=== PATIENT | female | born 1990 | race Caucasian/White ===

== ENCOUNTER 2021-08-18 01:47 | Emergency (ER) | payer SELFPAY ==
--- NOTE | 2021-08-18 01:51 | XRR_ITS ---
PROCEDURE INFORMATION: Exam: XR Right Ankle Exam date and time: 08/18/2021 2:16 AM Age: 31 years old Clinical indication: Injury or trauma; Fall; Sprain or strain; Ankle; Right TECHNIQUE: Imaging protocol: XR Right ankle. Views: 3 or more views. COMPARISON: No relevant prior studies available. FINDINGS: Bones/joints: The ankle mortise is normally aligned. No acute fracture is seen. Small calcaneal plantar enthesophyte. Soft tissues: No tibio-talar joint effusion is present. Kager's fat pad is normal. XR/XR ankle RT min 3V* [id number] IMPRESSION: No evidence of fracture.
--- NOTE | 2021-08-18 01:51 | XRR_ITS ---
PROCEDURE INFORMATION: Exam: XR Right Foot Exam date and time: 08/18/2021 2:16 AM Age: 31 years old Clinical indication: Pain; Foot; Right; Additional info: Fall TECHNIQUE: Imaging protocol: XR Right foot. Views: 3 or more views. COMPARISON: No relevant prior studies available. FINDINGS: Bones/joints: No acute fracture is seen. The Lisfranc joint is in normal alignment. The visualized joint spaces are normal. Bifid medial hallux sesamoid. Small calcaneal plantar enthesophyte. Soft tissues: No joint effusion is seen. XR/XR foot RT min 3V* [id number] IMPRESSION: No evidence of acute fracture or dislocation.
[2021-08-18 01:54] VITALS: BP 143/90; PULSE 90; RESP 16; TEMP 36.6; O2SAT 97; BMI 43.2
--- NOTE | 2021-08-18 02:15 | W.ED.FALL ---
HPI - Fall General: Chief Complaint: Fall Stated Complaint: fell, R foot injury Time Seen by Provider: 08/18/21 01:54 Source: patient Mode of arrival: ambulatory Limitations: no limitations History of Present Illness: 31-year-old female states that she was walking down stairs at 6 PM states she had fell and twisted her right foot. She has pain over the right lateral portion of her foot with a contusion. States that pain is a 4 out of 10 she is able ambulate but states it is painful. Denies any other injuries denies any other pain. States her pain is improved with rest. Associated symptoms-after fall: Denies abdominal pain, chest pain or headache(s) Review of Systems Const: Denies: fever(s), chills, body aches or change in appetite Eyes: Denies: blurry vision or eye discomfort ENMT: Denies: throat pain or dental pain Card: Denies: chest pain Resp: Denies: dyspnea GI: Denies: abdominal pain, nausea, vomiting or diarrhea : Denies: dysuria Musc: Reports: extremity pain Skin/Breast: Denies: rash Neuro: Denies: headache(s) Psych: Denies: depression Jake/Lymph: Denies: easy bruising All/Imm: Denies: urticaria PFSH ED PFSH: Medical History (Updated 08/18/21 @ 02:18 by Jaime Wei MD) No pertinent past medical history Social History (Updated 08/18/21 @ 02:17 by Jaime Wei MD) Substance/Drug Use: never Physical Exam Const: COMMON NORMALS: no acute distress, patient oriented x3 and healthy appearing HENMT: COMMON NORMALS: normocephalic and atraumatic HEAD & SCALP: normocephalic and atraumatic Eye: COMMON NORMALS: Equal, round and reactive pupils present and EOMs intact bilaterally PUPIL: Yes Equal, round and reactive pupils present Neck/C-Spine: COMMON NORMALS: full ROM and supple Chest: COMMONS NORMALS: normal inspection of the chest and normal palpation of entire chest wall Resp: COMMON NORMALS: normal respiratory effort, No retractions, No use of accessory muscles and clear to auscultation bilaterally AUSCULTATION: clear to auscultation bilaterally Cardio: COMMON NORMALS: regular rate, regular rhythm and No murmurs present (Cardio) RATE: regular rate RHYTHM: regular rhythm GI: COMMON NORMALS: Normal to inspection, nondistended, normoactive bowel sounds present, Soft to palpation, non-tender and no masses PALPATION: Yes Soft to palpation Extremity: COMMON NORMALS: full ROM NARRATIVE EXTREMITY EXAM: Contusion over right lateral foot with slight tenderness no obvious deformity Neuro: COMMON NORMALS: patient oriented x3, moves all extremities and no focal motor deficits Psych: COMMON NORMALS: mental status grossly normal, Normal thought process present and cooperative THOUGHT PROCESS: Normal thought process present Skin: COMMON NORMALS: no rashes or lesions noted and no wounds GENERAL SKIN EXAM: no rashes or lesions noted Course Vital Signs: Vital signs: Vital Signs Temperature 97.9 F 08/18/21 01:54 Pulse Rate 90 08/18/21 01:54 Respiratory Rate 16 08/18/21 01:54 Blood Pressure 143/90 08/18/21 01:54 Pulse Oximetry 97 08/18/21 01:54 MDM - Fall Medical Decision Making Patient presents here with a foot sprain x-ray here is negative patient placed in Everette wrap prescribed Naprosyn is stable for discharge. Discharge Plan Discharge Patient Disposition: Home Clinical Impression: Sprain of foot, right Qualifiers: Encounter type: initial encounter Qualified Code(s): S93.601A - Unspecified sprain of right foot, initial encounter Prescriptions: New Naprosyn 500 mg tablet 500 mg PO BID PRN (Reason: pain) Qty: 20 0RF Discharge Orders: Discharge ED (Routine); Ordered 08/18/21 Ordered By: Jaime Wei Discharge Diet: Advance as tolerated Discharge Activity: Resume usual activity Patient Instructions: Foot Sprain (ED) Coding Level of Care Code ED Material Mixer for Reema Fwurvashi Exam Comprehensive
== END 2021-08-18 02:25 | disposition home or self-care (01) ==
PROVIDERS: Emergency Provider Emergency Medicine
DX: S93.601A Unspecified sprain of right foot, initial encounter (principal); W10.9XXA Fall (on) (from) unspecified stairs and steps, initial encounter
CPT/HCPCS: 73610; 73630; 99283

== ENCOUNTER → 2021-12-19 09:22 | Outpatient (BNVA) | payer MEDICAID, SELFPAY | PROVIDERS: Visit Provider Nurse Practitioner Women's Health | DX: N92.6 Irregular menstruation, unspecified (principal) | CPT/HCPCS: 81025 ==

== ENCOUNTER → 2021-12-30 10:30 | Outpatient (BNVA) | payer MEDICAID, SELFPAY | PROVIDERS: Visit Provider Obstetrics & Gynecology | DX: Z34.90 Encounter for supervision of normal pregnancy, unspecified, unspecified trimester (principal) | CPT/HCPCS: 80307; 81000; 82950; 83036; 84443; 85027; 86592; 86762; 86803; 86850; 86900; 87086; 87340; 87806 ==

== ENCOUNTER → 2022-01-02 11:03 | Outpatient (BNVA) | payer MEDICAID, SELFPAY | PROVIDERS: Visit Provider Obstetrics & Gynecology | DX: Z34.91 Encounter for supervision of normal pregnancy, unspecified, first trimester (principal); Z3A.09 9 weeks gestation of pregnancy | CPT/HCPCS: 76817 ==

== ENCOUNTER → 2022-01-07 07:40 | Outpatient (BNVA) | payer OTHER, SELFPAY | PROVIDERS: Visit Provider Obstetrics & Gynecology | DX: Z34.90 Encounter for supervision of normal pregnancy, unspecified, unspecified trimester (principal) | CPT/HCPCS: 82951; 82952 ==

== ENCOUNTER → 2022-01-13 11:11 | Outpatient (BNVA) | payer OTHER, MEDICAID, SELFPAY | PROVIDERS: Visit Provider Obstetrics & Gynecology | DX: O09.91 Supervision of high risk pregnancy, unspecified, first trimester (principal); Z3A.00 Weeks of gestation of pregnancy not specified; Z12.4 Encounter for screening for malignant neoplasm of cervix | CPT/HCPCS: 81000; 87491; 87591; 87624 ==

== ENCOUNTER → 2022-01-20 08:09 | Outpatient (BNVA) | payer OTHER, SELFPAY | PROVIDERS: Visit Provider Obstetrics & Gynecology | DX: O09.92 Supervision of high risk pregnancy, unspecified, second trimester (principal); Z3A.00 Weeks of gestation of pregnancy not specified | CPT/HCPCS: 81000 ==

== ENCOUNTER → 2022-01-28 08:06 | Outpatient (BNVA) | payer OTHER, SELFPAY | PROVIDERS: Visit Provider Obstetrics & Gynecology | DX: O09.92 Supervision of high risk pregnancy, unspecified, second trimester (principal); Z3A.00 Weeks of gestation of pregnancy not specified | CPT/HCPCS: 81000 ==

== ENCOUNTER → 2022-02-03 09:50 | Outpatient (BNVA) | payer OTHER, SELFPAY | PROVIDERS: Visit Provider Obstetrics & Gynecology | DX: O09.92 Supervision of high risk pregnancy, unspecified, second trimester (principal); O24.912 Unspecified diabetes mellitus in pregnancy, second trimester; Z3A.00 Weeks of gestation of pregnancy not specified | CPT/HCPCS: 81000; 87086 ==

== ENCOUNTER → 2022-02-06 13:16 | Outpatient (BNVA) | payer OTHER, MEDICAID, SELFPAY | PROVIDERS: Visit Provider Obstetrics & Gynecology | DX: O24.419 Gestational diabetes mellitus in pregnancy, unspecified control (principal); Z3A.14 14 weeks gestation of pregnancy | CPT/HCPCS: 76815 ==

== ENCOUNTER → 2022-02-11 09:20 | Outpatient (BNVA) | payer OTHER, MEDICAID, SELFPAY | PROVIDERS: Visit Provider Obstetrics & Gynecology | DX: O09.92 Supervision of high risk pregnancy, unspecified, second trimester (principal); Z3A.00 Weeks of gestation of pregnancy not specified | CPT/HCPCS: 81000; 82105 ==

== ENCOUNTER → 2022-02-19 10:00 | Outpatient (BNVA) | payer OTHER, SELFPAY | PROVIDERS: Visit Provider Nurse Practitioner Women's Health | DX: O09.92 Supervision of high risk pregnancy, unspecified, second trimester (principal); Z3A.00 Weeks of gestation of pregnancy not specified | CPT/HCPCS: 81000 ==

== ENCOUNTER → 2022-02-25 10:44 | Outpatient (BNVA) | payer OTHER, SELFPAY | PROVIDERS: Visit Provider Obstetrics & Gynecology | DX: O09.92 Supervision of high risk pregnancy, unspecified, second trimester (principal); Z3A.00 Weeks of gestation of pregnancy not specified | CPT/HCPCS: 81000 ==

== ENCOUNTER → 2022-03-18 09:00 | Outpatient (BNVA) | payer OTHER, SELFPAY | PROVIDERS: Visit Provider Obstetrics & Gynecology | DX: O09.92 Supervision of high risk pregnancy, unspecified, second trimester (principal); Z3A.00 Weeks of gestation of pregnancy not specified | CPT/HCPCS: 81000 ==

== ENCOUNTER → 2022-03-25 10:58 | Outpatient (BNVA) | payer OTHER, SELFPAY | PROVIDERS: Visit Provider Obstetrics & Gynecology | DX: O09.92 Supervision of high risk pregnancy, unspecified, second trimester (principal); Z3A.00 Weeks of gestation of pregnancy not specified | CPT/HCPCS: 81000 ==

== ENCOUNTER → 2022-04-11 07:38 | Outpatient (BNVA) | payer OTHER, MEDICAID, SELFPAY | PROVIDERS: Visit Provider Obstetrics & Gynecology | DX: O09.92 Supervision of high risk pregnancy, unspecified, second trimester (principal); Z3A.00 Weeks of gestation of pregnancy not specified | CPT/HCPCS: 81000; 85025 ==

== ENCOUNTER → 2022-05-08 13:12 | Outpatient (BNVA) | payer MEDICAID, SELFPAY | PROVIDERS: Visit Provider Obstetrics & Gynecology | DX: O09.92 Supervision of high risk pregnancy, unspecified, second trimester (principal); O99.212 Obesity complicating pregnancy, second trimester; E66.9 Obesity, unspecified; Z3A.00 Weeks of gestation of pregnancy not specified | CPT/HCPCS: 84315; 85027; 86850 ==

== ENCOUNTER → 2022-06-13 15:33 | Outpatient (BNVA) | payer MEDICAID, SELFPAY | PROVIDERS: Visit Provider Obstetrics & Gynecology | DX: O09.90 Supervision of high risk pregnancy, unspecified, unspecified trimester (principal); O99.210 Obesity complicating pregnancy, unspecified trimester; E66.9 Obesity, unspecified; Z3A.00 Weeks of gestation of pregnancy not specified | CPT/HCPCS: 81000; 85025 ==

== ENCOUNTER → 2022-06-17 08:40 | Outpatient (BNVA) | payer OTHER, MEDICAID, SELFPAY | PROVIDERS: Visit Provider Obstetrics & Gynecology | DX: O09.93 Supervision of high risk pregnancy, unspecified, third trimester (principal); Z3A.00 Weeks of gestation of pregnancy not specified | CPT/HCPCS: 76819 ==

== ENCOUNTER 2022-06-20 10:23 | Outpatient (CLI) | payer OTHER, MEDICAID, SELFPAY ==
[2022-06-20 10:34] VITALS: BP 119/70; PULSE 77
[2022-06-20 10:39] VITALS: BMI 41.5
--- NOTE | 2022-06-20 11:29 | US_ITS ---
WS: [id number] BIOPHYSICAL PROFILE AMNIOTIC FLUID HISTORY: GDM COMPARISON: 06/17/2022 position: Vertex. Cardiac activity: 131 bpm. Cervix: Poorly visualized. Placenta: Not imaged. Parameters are as follows: Breathin Movement: 2 Tone: 2 Fluid volume: 2 Amniotic fluid index was not performed but there are several vertical pocket of amniotic fluid which are normal. The largest vertical pocket is 3.9 cm. US/US OB BPP [place] NST 23730 IMPRESSION: 1. Biophysical profile score: 8/8. 2. Normal amniotic fluid.
== END 2022-06-20 12:05 | disposition home or self-care (01) ==
LOC: OPOB 10:24 → OBGYN 10:25
PROVIDERS: Visit Provider Obstetrics & Gynecology
DX: O24.419 Gestational diabetes mellitus in pregnancy, unspecified control (principal); Z3A.00 Weeks of gestation of pregnancy not specified
CPT/HCPCS: 59025; 76819; 84315

== ENCOUNTER → 2022-06-24 08:42 | Outpatient (BNVA) | payer MEDICAID, SELFPAY | PROVIDERS: Visit Provider Obstetrics & Gynecology | DX: O24.919 Unspecified diabetes mellitus in pregnancy, unspecified trimester (principal); Z3A.00 Weeks of gestation of pregnancy not specified | CPT/HCPCS: 76819 ==

== ENCOUNTER 2022-06-27 11:50 | Outpatient (CLI) | payer MEDICAID, SELFPAY ==
[2022-06-27 12:05] VITALS: BP 126/76; PULSE 71
[2022-06-27 12:19] VITALS: BMI 42.2
== END 2022-06-27 12:49 | disposition home or self-care (01) ==
LOC: OPOB 11:57 → OBGYN 11:58
PROVIDERS: Visit Provider Obstetrics & Gynecology
DX: O24.419 Gestational diabetes mellitus in pregnancy, unspecified control (principal)
CPT/HCPCS: 59025; 81000

== ENCOUNTER → 2022-07-01 10:33 | Outpatient (BNVA) | payer MEDICAID, SELFPAY | PROVIDERS: Visit Provider Obstetrics & Gynecology | DX: O24.419 Gestational diabetes mellitus in pregnancy, unspecified control (principal); Z3A.00 Weeks of gestation of pregnancy not specified | CPT/HCPCS: 76819 ==

== ENCOUNTER 2022-07-01 11:13 | Outpatient (CLI) | payer OTHER, MEDICAID, SELFPAY ==
[2022-07-01 11:25] VITALS: BP 126/68; PULSE 87
[2022-07-01 12:02] VITALS: BMI 42.4
== END 2022-07-01 12:32 | disposition home or self-care (01) ==
LOC: OPOB 11:17 → OBGYN 11:21
PROVIDERS: Visit Provider Obstetrics & Gynecology
DX: O24.919 Unspecified diabetes mellitus in pregnancy, unspecified trimester (principal)
CPT/HCPCS: 59025

== ENCOUNTER 2022-07-04 10:48 | Outpatient (CLI) | payer OTHER, MEDICAID, SELFPAY ==
[2022-07-04 10:58] VITALS: BP 131/74; PULSE 76
[2022-07-04 11:02] VITALS: BMI 42.7
[2022-07-04 12:14] VITALS: BP 131/74; PULSE 76
== END 2022-07-04 12:15 | disposition home or self-care (01) ==
LOC: OPOB 10:54 → OBGYN 10:55
PROVIDERS: Visit Provider Obstetrics & Gynecology
DX: O24.419 Gestational diabetes mellitus in pregnancy, unspecified control (principal); Z3A.00 Weeks of gestation of pregnancy not specified
CPT/HCPCS: 59025; 81000; 87081; 99211

== ENCOUNTER 2022-07-11 09:58 | Outpatient (CLI) | payer MEDICAID, SELFPAY ==
[2022-07-11 10:00] VITALS: BMI 42.7
[2022-07-11 10:04] VITALS: BP 126/60; PULSE 57
[2022-07-11 10:19] VITALS: BP 116/73; PULSE 68
--- NOTE | 2022-07-11 10:55 | US_ITS ---
WS: [id number] OB ultrasound for biophysical profile, 07/11/2022 Clinical Data: Gestational DM Comparison: None. Findings: There is a single intrauterine in the vertex presentation. The heart rate is 120 beat s per minute. The cervix is closed. The placenta is fundal. The biophysical profile is 8 of 8 with normal scores for breathing, movement, posture and tone and amniotic fluid volume. US/US OB BPP wo NST 30097 Impression: 1. Single intrauterine in vertex presentation. 2. Biophysical profile 8 of 8. 3. heart rate 120 beats per minute.
[2022-07-11 11:55] VITALS: BP 116/73; PULSE 68
== END 2022-07-11 11:55 | disposition home or self-care (01) ==
LOC: OPOB 10:02 → OBGYN 10:03
PROVIDERS: Absent Provider Obstetrics & Gynecology; Visit Provider Obstetrics & Gynecology
DX: O24.419 Gestational diabetes mellitus in pregnancy, unspecified control (principal); Z3A.00 Weeks of gestation of pregnancy not specified
CPT/HCPCS: 59025; 76819; 81000; 99211

== ENCOUNTER → 2022-07-14 10:28 | Outpatient (BNVA) | payer OTHER, MEDICAID, SELFPAY | PROVIDERS: Visit Provider Obstetrics & Gynecology | DX: O09.93 Supervision of high risk pregnancy, unspecified, third trimester (principal); Z3A.00 Weeks of gestation of pregnancy not specified | CPT/HCPCS: 76819; 81000 ==

== ENCOUNTER 2022-07-16 10:31 | Outpatient (CLI) | payer OTHER, MEDICAID, SELFPAY ==
[2022-07-16 12:18] LABS: Total Volume, Urine 2150 mL; Urine Total Protein 12.6 mg/dL (0-150); Urine Total Protein 24 Hour 270.9 mg/24hr (0-150)
== END 2022-07-16 10:32 | disposition home or self-care (01) ==
LOC: LAB 10:34
PROVIDERS: PCP Obstetrics & Gynecology; Visit Provider Obstetrics & Gynecology
DX: Z03.89 Encounter for observation for other suspected diseases and conditions ruled out (principal)
CPT/HCPCS: 84156

== ENCOUNTER 2022-07-19 01:40 | Inpatient (IN) | payer OTHER, MEDICAID, SELFPAY ==
[2022-07-18] VITALS (9 sets, daily range): BP systolic 123–155; BP diastolic 58–68; PULSE 66–79; TEMP 36.1; BMI 43.0
[2022-07-19] VITALS (75 sets, daily range): BP systolic 110–177; BP diastolic 55–83; PULSE 56–97; RESP 16–18; TEMP 35.9–36.6; O2SAT 98–100
[2022-07-19 02:57] LABS: Basophils % 0.1 %; Eosinophils # 0.1 10^3/uL (0.0-0.8); Hematocrit 34.8 % (37.0-47.0); Hemoglobin 11.2 g/dL (11.5-15.3); Lymphocytes # 2.3 10^3/uL (0.8-4.8); Lymphocytes % 21.1 %; Mean Corpuscular HGB Conc 32.2 g/dL (30.0-36.0); Mean Corpuscular Hemoglobin 26.9 pg (28.0-34.0); Mean Corpuscular Volume 83.5 fl (81-99); Mean Platelet Volume 10.6 fL (7.4-10.4); Monocytes # 0.8 10^3/uL (0.2-0.9); Monocytes % 6.9 %; Neutrophils # 7.68 10^3/uL (1.8-7.7); Neutrophils % 70.2 %; Nucleated Red Blood Cells % 0 %; Platelet Count 195 10^3/cmm (130-400); Red Blood Count 4.17 10^6/uL (4.1-5.3); Red Cell Distribution Width 17.2 % (12.1-15.1)
[2022-07-19] MEDS: miSOPROStol 100 mcg tablet 25 MCG VAGINAL ×3 (03:10→11:45)
--- NOTE | 2022-07-19 03:18 | P.HP_ITS ---
Providers/Chief Complaint Admitting Physician: Malcolm Galarza MD Primary Care Provider: Saul Garza MD Chief Complaint: Elevated Blood Pressures at home, Vaginal Pressure History of Present Illness 32 y.o. EDC August 05, 2022 At 38 w 2 d With GDM, well-controlled with oral hypoglycemic meds Presented to L&D c/o episodes of headache, dizziness, malaise checked BP at work, found to be high, approx. 160 / 95 presented here for evaluation states headache slowly going away + active movements Medications/Allergies Home Medications Medication Instructions Recorded Confirmed Last Taken Type PNV 153-FA 400 mcg-om3 35 mg-dha tab PO 12/19/21 07/11/22 07/18/22 History 25 mg-epa 5 mg-fish oil chew tablet ( Gummies) acetaminophen 500 mg tablet 1,000 mg PO Q6H PRN Pain 12/30/21 07/19/22 07/11/22 00:30 History (Tylenol Extra Strength) blood-glucose meter (Blood Glucose #1 ea 01/13/22 07/11/22 Unknown Rx Monitoring kit) metformin 500 mg tablet 500 mg PO BID 03/18/22 07/19/22 07/18/22 History glyburide 2.5 mg tablet 2.5 mg PO DAILY 03/25/22 07/19/22 07/17/22 History ferrous sulfate 325 mg (65 mg 325 mg PO TID 04/22/22 07/19/22 07/18/22 History iron) tablet Maternity Belt #1 ea 06/20/22 07/11/22 Unknown Rx blood sugar diagnostic (Blood #150 ea 07/11/22 07/11/22 Unknown Rx Glucose Test strips) lancets #150 ea 07/11/22 07/11/22 Unknown Rx Allergies Allergy/AdvReac Type Severity Reaction Status Date / Time black pepper Allergy Severe blisters Verified 07/11/22 08:23 in mouth, vomiting lavender (Lavandula Allergy itchy Verified 07/11/22 08:23 angustifolia) watery eyes, sneezing and migraines lubricants Allergy Intermediate vaginal Uncoded 07/11/22 08:23 swelling and burning PFSH Acute PFSH: Medical History ADD (attention deficit disorder) Dx'd as a young child; managed with concerta, but stopped therapy at age 14. Anemia affecting in second trimester Anxiety and depression Diagnosed at 15 y/o. Has been managed without medication. Hidradenitis suppurativa No pertinent past medical history neghx: htn,dm,thyroid,dvt/pe PCP: None Surgical History Hx of ear disorder ear drum reconstruction at age 4 Family History Other Adopted Social History Smoking and tobacco status: never smoked Substance/Drug Use: never Female Reproductive History: : 1 Vitals/I&O/Wt Last Vital Signs Temp 97.0 F L 07/18/22 22:04 Pulse 82 07/19/22 03:03 BP 145/82 07/19/22 03:03 O2 Del Method Room Air 07/18/22 22:01 Weight last 48 hrs Weight 235 lb Physical Exam Narrative: Weight 235 lbs; 5?2? Awake, alert, comfortable BPs 155 / 60, 123 / 58, 137 / 68, 141 / 67, 152 / 74 Abd: soft, nontender Cx: FT / 50% / high / posterior / soft Ext: no pitting edema External monitor: heart tracing good variability, + accelerations Data 07/19/22 02:34 A&P Assessment and plan (1) 38 weeks gestation of : 38 w 2 d Primigravida GDM Elevated BPs Obesity Patient presented with headache, malaise, dizziness, and elevated BPs Here, in L&D, some BPs are elevated while others are normal Patient?s constellation of symptoms is concerning for development of pre- eclampsia In view of several risk factors for pre-eclampsia, including obesity, gestat ional diabetes, primigravida, symptoms, and several elevated BP readings, at 38 weeks, I recommend labor induction. Her cervix, however, is not favorable. I explained that labor induction will be somewhat prolonged. There may be a small chance that if her BPs normalize, if she and the fetus are doing well, and if her cervix does not progress with induction, she may be discharged un-delivered and be closely monitored. fetus reassuring Plan now is to admit and place cytotec 25 ug intravaginally (2) Hypertension: (3) Diabetes in : Attestations Medical Necessity Statement*: patient at 38 weeks with elevated BPs, admit for labor induction Coding Level of Care Code Acute Code for Chg Fwd Diagnoses 38 weeks gestation of Z3A.38 Hypertension I10 Diabetes in O24.919 Time Spent (min) 60
[2022-07-19 05:27] LABS: Glucose Point of Care 68 mg/dL (70-110)
[2022-07-19 06:13] LABS: Alanine Aminotransferase 38 U/L (0-33); Albumin Level 3.2 g/dL (3.5-5.2); Alkaline Phosphatase 91 U/L (35-105); Anion Gap 15.7 (5-19); Aspartate Amino Transferase 29 U/L (0-32); Blood Urea Nitrogen 7 mg/dL (6-20); Calcium 9.1 mg/dL (8.5-10.5); Carbon Dioxide 21 mmol/L (22-29); Chloride 104 mmol/L (98-107); Globulin 3.3 g/dL (1.3-4.6); Glucose 96 mg/dL (65-115); Osmolality Calculated 282 mOsm/kg (285-295); Potassium 3.7 mmol/L (3.5-5.1); Sodium 137 mmol/L (136-145); Total Bilirubin 0.2 mg/dL (0.15-1.2); Total Protein 6.5 g/dL (6.6-8.7); Uric Acid 5.7 mg/dL (2.4-5.7)
[2022-07-19 09:45] LABS: Glucose Point of Care 85 mg/dL (70-110)
[2022-07-19] MEDS: acetaminophen 325 mg Tablet 650 MG PO (10:14)
--- NOTE | 2022-07-19 14:00 | P.PN_ITS ---
GENERAL ACCOUNTING MANAGER Subjective Subjective: Interval history: July 19, 2022, 1305 Fetus reassuring BPs intermittently high Feels some cramping Received three doses of cytotec 25 ug intravaginal Labor: Station: -3 Amniotic Membrane Status: Intact Monitor Mode: Palpation Contraction Pattern: Rare Status: Category I Vitals/I&O/Wt Last Vital Signs Temp 97.8 F 07/19/22 10:00 Pulse 68 07/19/22 12:48 Resp 18 07/19/22 10:00 BP 144/64 07/19/22 12:48 O2 Del Method Room Air 07/19/22 05:35 Weight last 48 hrs Weight 235 lb Physical Exam Narrative: comfortable, awake, alert heart tracing: good variability, + accelerations Cervix per RN: 1.5 cm / Data 07/19/22 02:34 07/19/22 02:34 A&P Assessment and plan (1) 38 weeks gestation of : 38 w 2 d Primigravida GDM Elevated BPs Obesity Labor induction Continue induction Plan start pitocin (2) Hypertension: (3) Diabetes in : Attestations Medical Necessity Statement*: patient at 38 w 2 d, with hypertension, admitted for labor induction Coding Level of Care Code Acute Code for Chg Fwd Diagnoses 38 weeks gestation of Z3A.38 Hypertension I10 Diabetes in O24.919 Time Spent (min) 20
[2022-07-19] MEDS: lactated ringers 1,000 ML 999 ML IV ×2 (15:00→22:00)
[2022-07-19] MEDS: dextrose 5%-lactated ringers 1,000 ML 125 ML IV (18:02)
[2022-07-19] MEDS: fentaNYL 50 mcg/mL INJ 2mL IVP (20:49)
--- NOTE | 2022-07-19 22:20 | P.ANESASSM_ITS ---
Pre-Anesthetic Assessment Height/Weight: Height 1.57 m Weight 106.594 kg Temp Pulse Resp BP Pulse Ox O2 Del Method 97.9 F 64 16 137/63 100 Room Air 07/19/22 16:02 07/19/22 22:41 07/19/22 20:49 07/19/22 22:41 07/19/22 22:41 07/19/22 05:35 Preop Diagnosis: IUP labor epidural Familial anesthetic complications: none Was Beta María taken within 24 hours: N/A Was Clonidine taken within 24 hours: N/A Social No alcohol and No tobacco Exam alert and oriented x 3 Airway Submandibular: within normal limits Cervical ROM: within normal limits History/ROS No significant history except as noted Pulmonary None reported CV/HEM Hypertension None reported Hepatic None reported Metabolic Diabetes Mellitus and Morbid Obesity [facility] [place] None reported Neuropsych Anxiety and Depression Anesthetic Plan ASA status: 3 Anesthesia: Anesthesia Evaluation and Regional (specify below) Medications/Allergies Home Medications Medication Instructions Recorded Confirmed Last Taken Type PNV 153-FA 400 mcg-om3 35 mg-dha tab PO 12/19/21 07/11/22 07/18/22 History 25 mg-epa 5 mg-fish oil chew tablet ( Gummies) acetaminophen 500 mg tablet 1,000 mg PO Q6H PRN Pain 12/30/21 07/19/22 07/11/22 00:30 History (Tylenol Extra Strength) blood-glucose meter (Blood Glucose #1 ea 01/13/22 07/11/22 Unknown Rx Monitoring kit) metformin 500 mg tablet 500 mg PO BID 03/18/22 07/19/22 07/18/22 History glyburide 2.5 mg tablet 2.5 mg PO DAILY 03/25/22 07/19/22 07/17/22 History ferrous sulfate 325 mg (65 mg 325 mg PO TID 04/22/22 07/19/22 07/18/22 History iron) tablet Maternity Belt #1 ea 06/20/22 07/11/22 Unknown Rx blood sugar diagnostic (Blood #150 ea 07/11/22 07/11/22 Unknown Rx Glucose Test strips) lancets #150 ea 07/11/22 07/11/22 Unknown Rx Allergies Allergy/AdvReac Type Severity Reaction Status Date / Time black pepper Allergy Severe blisters Verified 07/11/22 08:23 in mouth, vomiting lavender (Lavandula Allergy itchy Verified 07/11/22 08:23 angustifolia) watery eyes, sneezing and migraines lubricants Allergy Intermediate vaginal Uncoded 07/11/22 08:23 swelling and burning Current Medications Generic Name Dose Route Start Last Admin Trade Name Yarielq PRN Reason Stop Dose Admin Acetaminophen 650 mg 07/19/22 02:05 07/19/22 10:14 Acetaminophen 325 Mg Tablet PO 650 mg Q6H PRN Administration MILD TO MODERATE PAIN Fentanyl 25 - 100 mcg 07/19/22 15:00 07/19/22 20:49 Fentanyl 50 Mcg/Ml Inj 2ml IVP 25 mcg Q1H PRN Administration SEVERE PAIN Dextrose/Lactated Ringer's 1,000 mls @ 125 mls/hr 07/19/22 02:05 07/19/22 18:02 Dextrose 5%-Lactated Ringers IV 125 mls/hr .Q8H PRN Administration per label comments Lactated Ringer's 1,000 mls @ 999 mls/hr 07/19/22 02:06 07/19/22 15:31 Lactated Ringers IV 500 mls/hr .Q1H1M PRN Infusion Per L&D Rescitation Protocol Oxytocin 30 unit in 500 mls @ 1 mls/hr 07/19/22 16:30 07/19/22 20:52 Pitocin IV Not Given .Q24H KWESI Protocol 1 MILLIUNIT/MIN Oxytocin 30 unit/ Sodium 503 mls @ 1 mls/hr 07/19/22 16:45 07/19/22 18:20 Chloride IV 2 mls/hr .Q24H KWESI 2 mls/hr Titration Protocol Misoprostol 25 mcg 07/19/22 10:23 07/19/22 11:45 Misoprostol 100 Mcg Tablet VAGINAL 25 mcg ONCE PRN Administration cervical ripening PFSH Anesthesia Medical History ADD (attention deficit disorder) Dx'd as a young child; managed with concerta, but stopped therapy at age 14. Anemia affecting in second trimester Anxiety and depression Diagnosed at 15 y/o. Has been managed without medication. Hidradenitis suppurativa No pertinent past medical history neghx: htn,dm,thyroid,dvt/pe PCP: None Surgical History Hx of ear disorder ear drum reconstruction at age 4 Family History Other Adopted Social History Smoking and tobacco status: never smoked Substance/Drug Use: never Female Reproductive History : 1 Data Anesthesia 07/19/22 02:34 07/19/22 02:34 Short CBC 07/19/22 Range/Units 02:34 WBC 11.0 H (4.0-10.0) 10^3/uL Hgb 11.2 L (11.5-15.3) g/dL Hct 34.8 L (37.0-47.0) % MCV 83.5 (81-99) fl Plt Count 195 (130-400) 10^3/cmm Neut % (Auto) 70.2 % Neut # (Auto) 7.68 (1.8-7.7) 10^3/uL BMP 07/19/22 02:34 Sodium 137 Potassium 3.7 Chloride 104 Carbon Dioxide 21 L BUN 7 Creatinine 0.4 L Glucose 96 Calcium 9.1 Liver Function 07/19/22 Range/Units 02:34 Total Bilirubin 0.2 (0.15-1.2) mg/dL AST 29 (0-32) U/L ALT 38 H (0-33) U/L Alkaline Phosphatase 91 (35-105) U/L Albumin 3.2 L (3.5-5.2) g/dL Cardiac Studies: No Data to Display
--- NOTE | 2022-07-19 22:44 | P.ANES_ITS ---
Anesthesia Procedures Procedure/Date: 07/19/22 Epidural: Time Out Performed: Yes Consents Signed: Procedure Consent Consent: from patient, risks and benefits reviewed and patient agrees to proceed Lumbar Level: L3-L4 Epidural position: sitting Epidural procedure: sterile prep of area, 1% lidocaine to numb the area, 18 g needle, negative for p aresthesia passed, test dose given, 1.5% xylocaine 1:200k epi, placed PCEA, no systemic response, sterile dressing applied, L.U.D. no apparent complications and 0.2% Ropiavacaine @ mls/hr (11) Additional Comments: MYRIAM at 5.5, taped at 12 at skin. first attempt blood return, catheter pulled and replaced. negative blood, CSF return upon aspiration.
[2022-07-20] VITALS (90 sets, daily range): BP systolic 71–209; BP diastolic 36–97; PULSE 54–157; RESP 15–16; TEMP 35.8–36.9; O2SAT 87–100
--- NOTE | 2022-07-20 02:08 | P.PN_ITS ---
LICENSED CHEMICAL SPRAY TECHNICIAN Subjective Subjective: Interval history: July 20, 2022, 0045 fetus reassuring comfortable with epidural on pitocin Cervix: 3 cm / 100 / -2 / anterior AROM, clear fluid IUPC attempted, unable to thread Labor: Station: -3 Amniotic Membrane Status: Intact Monitor Mode: Palpation Contraction Pattern: Irregular Status: Category I Vitals/I&O/Wt Last Vital Signs Temp 97.9 F 07/19/22 16:02 Pulse 80 07/20/22 02:00 Resp 16 07/19/22 20:49 BP 158/73 07/20/22 02:00 Pulse Ox 99 07/19/22 23:28 O2 Del Method Room Air 07/19/22 05:35 07/19/22 07/19/22 07/20/22 14:59 22:59 06:59 Intake Total 1811.483 / 1811.483 200.8 / 2011.283 Balance 1811.483 / 1811.483 200.8 / 2011.283 Weight last 48 hrs Weight 235 lb Data 07/19/22 02:34 07/19/22 02:34 A&P Assessment and plan (1) 38 weeks gestation of : (2) Hypertension: undergoing labor induction continue pitocin Attestations Medical Necessity Statement*: patient at 38 weeks, with hypertension, admitted for labor induction Coding Level of Care Code Acute Code for Chg Fwd Diagnoses 38 weeks gestation of Z3A.38 Hypertension I10 Time Spent (min) 20
[2022-07-20] MEDS: dextrose 5%-lactated ringers 1,000 ML 125 ML IV (02:52)
--- NOTE | 2022-07-20 03:32 | P.ANES_ITS ---
Anesthesia Procedures Procedure/Date: 07/20/22 Procedure Narrative: POWER LINEWORKER at bedside at 0331, epidural bolused with 3mLs 0.25% bupi and 100 mcg fentanyl. Pt. states relief.
--- NOTE | 2022-07-20 03:32 | ANES.PROC ---
Anesthesia Procedures Procedure/Date: 07/20/22 Procedure Narrative: CITY MAIL CARRIER at bedside at 0331, epidural bolused with 3mLs 0.25% bupi and 100 mcg fentanyl. Pt. states relief.
[2022-07-20 03:36] LABS: Glucose Point of Care 117 mg/dL (70-110)
[2022-07-20] MEDS: NIFEdipine 10 mg Capsule PO (06:36)
[2022-07-20] MEDS: carboprost tromethamine 250 mcg/mL Amp IM (07:32)
[2022-07-20] MEDS: lidocaine 2% INJ 20 mL INJECTION (07:35)
[2022-07-20] MEDS: diphenoxylate/atropine Tablet 2 TAB PO (07:46)
[2022-07-20] MEDS: lactated ringers 1,000 ML 999 ML IV (08:45)
[2022-07-20] MEDS: ibuprofen 800 mg tablet PO ×2 (10:06→20:40)
[2022-07-20] MEDS: prenatal vitamin Capsule 1 CAP PO (10:06)
--- NOTE | 2022-07-20 12:36 | ANE.PACU2 ---
Inpatient post-anesthesia follow up: Airway intact: Yes Vital signs: Temperature 97.0 F Pulse Rate 116 Respiratory Rate 16 Blood Pressure 110/71 Pulse Oximetry 98 Oxygen Delivery Me thod Room Air Oxygen Flow Rate Fraction of Inspir ed Oxygen Hydration adequate: Yes Nausea and vomiting: No Pain level: 2 Mental status: Baseline
--- NOTE | 2022-07-20 14:59 | PM.DELIVERY ---
Delivery Note: Date of delivery: July 20, 2022 Pre-delivery diagnoses: 38 w 2 d gestation hypertension Post-delivery diagnoses: same Procedure: labor induction vaginal delivery Delivering Physician: Malcolm Galarza MD. Estimated blood loss (mL): 500 Pre-Delivery Course: patient at 38 w 2 d with hypertension Delivery: , vigorous infant normal placenta and cord cord gases and blood obtained 2nd degree perineal laceration repaired Post-Delivery Status: patient with moderate hemorrhage required hemabate x one History History History 1 Term 1 0 Miscarriages/Ectopic 0 Living Children 1 A&P Assessment and plan (1) Vaginal delivery: Coding Level of Care Code Acute Code for Chg Fwd Diagnoses Vaginal delivery O80 Time Spent (min) 60
[2022-07-20 15:11] LABS: Hematocrit 28.4 % (37.0-47.0); Hemoglobin 9.5 g/dL (11.5-15.3)
[2022-07-20] MEDS: alum-mag-hydroxide-sime 30 mL UDC PO (22:14)
--- NOTE | 2022-07-21 01:54 | PC.NURSE ---
RN suri found mother giving baby bottle of formula while baby laying flat in open crib, educated mother on risk of aspiration and choking. reeducated on proper feeding technique. Mother resistant to education, education restated and importance stressed. Mother verbalized understanding and does pick baby up.
[2022-07-21 04:21] VITALS: BP 122/75; PULSE 89; TEMP 36.7; O2SAT 98
[2022-07-21 06:05] LABS: Hematocrit 21.1 % (37.0-47.0); Hemoglobin 6.9 g/dL (11.5-15.3); Mean Corpuscular HGB Conc 32.7 g/dL (30.0-36.0); Mean Corpuscular Hemoglobin 27.4 pg (28.0-34.0); Mean Corpuscular Volume 83.7 fl (81-99); Mean Platelet Volume 10.4 fL (7.4-10.4); Platelet Count 175 10^3/cmm (130-400); Red Blood Count 2.52 10^6/uL (4.1-5.3); Red Cell Distribution Width 16.9 % (12.1-15.1); White Blood Count 14.7 10^3/uL (4.0-10.0)
--- NOTE | 2022-07-21 06:33 | PC.NURSE ---
RN rounding at this time, mother found to be holding while resting in bed. Mother states it's okay if I sleep with baby, right? RN reeducated patient on safe sleeping practices, mother verbalized understanding.
[2022-07-21] MEDS: ibuprofen 800 mg tablet PO ×3 (09:59→21:23)
[2022-07-21] MEDS: docusate sodium 100 mg Capsule PO (09:59)
[2022-07-21] MEDS: prenatal vitamin Capsule 1 CAP PO (09:59)
[2022-07-21 11:07] VITALS: BP 119/77; PULSE 70; RESP 16; TEMP 36.9; O2SAT 98
--- NOTE | 2022-07-21 15:00 | PM.OBGYPN ---
GEOPHYSICAL LABORATORY SUPERVISOR Subjective Subjective: Interval history: patient s/p PPD #1 had moderate hemorrhage required hemabate x one required one unit of PRBC transfusion no c/o today no pain, bleeding ambulating, eating well Labor: Station: +1 Amniotic Membrane Status: Ruptured Monitor Mode: Palpation Contraction Pattern: Regular Status: Category I Vitals/I&O/Wt Last Vital Signs Temp 97.9 F 07/22/22 13:00 Pulse 83 07/22/22 13:00 Resp 16 07/22/22 13:00 BP 127/84 07/22/22 13:00 Pulse Ox 97 07/22/22 13:00 O2 Del Method Room Air 07/22/22 04:41 Physical Exam Const: COMMON NORMALS: no acute distress GI: COMMON NORMALS: Normal to inspection, nondistended, normoactive bowel sounds present Urinary Catheter Management: Long Latex Free: Cath Placed During This Visit: yes, but has since been removed by the nurse Reason for Continuing Indwelling Catheter: Decision to DC Catheter Urinary Catheter Date of Insertion: 07/19/22 Urinary Catheter Time of Insertion: 23:40 Date Urinary Catheter Removed: 07/20/22 Time Urinary Catheter Discontinued: 15:20 Data 07/21/22 06:00 07/19/22 02:34 A&P Assessment and plan (1) Vaginal delivery: (2) hemorrhage: Attestations Medical Necessity Statement*: patient s/p vaginal delivery, treated for moderate hemorrhage Coding Level of Care Code Acute Code for Chg Fwd Diagnoses Vaginal delivery O80 hemorrhage O72.1 Time Spent (min) 60
[2022-07-21 22:00] VITALS: BP 124/79; PULSE 82; RESP 17; TEMP 36.8; O2SAT 100
[2022-07-22 04:41] VITALS: BP 146/83; PULSE 87; RESP 15; O2SAT 96
[2022-07-22] MEDS: ibuprofen 800 mg tablet PO (09:55)
[2022-07-22] MEDS: docusate sodium 100 mg Capsule PO (09:56)
[2022-07-22] MEDS: prenatal vitamin Capsule 1 CAP PO (09:56)
[2022-07-22 12:14] VITALS: BP 127/84; PULSE 83; RESP 16; TEMP 36.6; O2SAT 97
[2022-07-22 13:00] VITALS: BP 127/84; PULSE 83; RESP 16; TEMP 36.6; O2SAT 97
--- NOTE | 2022-07-22 15:01 | PM.OBGYDC ---
Discharge Providers SENIOR OFFICE ASSISTANT Date of Admission: 07/19/22 01:40 Date of Discharge: 07/22/22 Attending Provider at Admission: Malcolm Galarza MD Attending Provider at Discharge: Malcolm Galarza MD Primary SENIOR OFFICE ASSISTANT: Saul Garza MD Primary Care Provider: Saul Garza MD Diagnoses at Discharge Discharge Diagnosis (1) 38 weeks gestation of : Details from hospital stay: patient at 38 weeks with hypertension admitted for labor induction Vaginal delivery moderate hemorrhage treated with hemabate and one U of PRBCs Status: Inactive (2) Hypertension: Status: Inactive Reason for Visit Reason for Visit: Elevated Blood Pressures at home, Vaginal Pressure Hospital Course Hospital Course patient underwent labor induction. Had spontaneous vaginal delivery. Had moderate hemorrhage. Received one U of PRBCs. Information Peripartum Data: Delivery Method: Vaginal Laceration description: Perineal - 2nd Degree complications: none Physical Exam Urinary Catheter Management: Long Latex Free: Cath Placed During This Visit: yes, but has since been removed by the nurse Reason for Continuing Indwelling Catheter: Decision to DC Catheter Urinary Catheter Date of Insertion: 07/19/22 Urinary Catheter Time of Insertion: 23:40 Date Urinary Catheter Removed: 07/20/22 Time Urinary Catheter Discontinued: 15:20 History History History 1 Term 1 0 Miscarriages/Ectopic 0 Living Children 1 Discharge Data Studies Completed and Pending Laboratory Results WBC 14.7 10^3/uL (4.0-10.0) H 07/21/22 06:00 RBC 2.52 10^6/uL (4.1-5.3) L 07/21/22 06:00 Hgb 6.9 g/dL (11.5-15.3) L 07/21/22 06:00 Hct 21.1 % (37.0-47.0) L 07/21/22 06:00 MCV 83.7 fl (81-99) 07/21/22 06:00 MCH 27.4 pg (28.0-34.0) L 07/21/22 06:00 MCHC 32.7 g/dL (30.0-36.0) 07/21/22 06:00 RDW 16.9 % (12.1-15.1) H 07/21/22 06:00 Plt Count 175 10^3/cmm (130-400) 07/21/22 06:00 MPV 10.4 fL (7.4-10.4) 07/21/22 06:00 Neut % (Auto) 70.2 % 07/19/22 02:34 Lymph % (Auto) 21.1 % 07/19/22 02:34 Citrus % (Auto) 6.9 % 07/19/22 02:34 Eos % (Auto) 1.0 % 07/19/22 02:34 Baso % (Auto) 0.1 % 07/19/22 02:34 Neut # (Auto) 7.68 10^3/uL (1.8-7.7) 07/19/22 02:34 Lymph # (Auto) 2.3 10^3/uL (0.8-4.8) 07/19/22 02:34 Citrus # (Auto) 0.8 10^3/uL (0.2-0.9) 07/19/22 02:34 Eos # (Auto) 0.1 10^3/uL (0.0-0.8) 07/19/22 02:34 Baso # (Auto) 0.0 10^3/uL (0.0-0.1) 07/19/22 02:34 Nucleated RBC % (auto) 0 % 07/19/22 02:34 Nucleated RBCs # 0.0 /100WBC 07/19/22 02:34 Sodium 137 mmol/L (136-145) 07/19/22 02:34 Potassium 3.7 mmol/L (3.5-5.1) 07/19/22 02:34 Chloride 104 mmol/L (98-107) 07/19/22 02:34 Carbon Dioxide 21 mmol/L (22-29) L 07/19/22 02:34 Anion Gap 15.7 (5-19) 07/19/22 02:34 BUN 7 mg/dL (6-20) 07/19/22 02:34 Creatinine 0.4 mg/dL (0.5-0.9) L 07/19/22 02:34 GFR Calculation 185.0 mL/min (90-130) H 07/19/22 02:34 Glucose 96 mg/dL (65-115) 07/19/22 02:34 POC Glucose 117 mg/dL (70-110) H 07/19/22 13:58 Calculated Osmolality 282 mOsm/kg (285-295) L 07/19/22 02:34 Uric Acid 5.7 mg/dL (2.4-5.7) 07/19/22 02:34 Calcium 9.1 mg/dL (8.5-10.5) 07/19/22 02:34 Total Bilirubin 0.2 mg/dL (0.15-1.2) 07/19/22 02:34 AST 29 U/L (0-32) 07/19/22 02:34 ALT 38 U/L (0-33) H 07/19/22 02:34 Alkaline Phosphatase 91 U/L (35-105) 07/19/22 02:34 Total Protein 6.5 g/dL (6.6-8.7) L 07/19/22 02:34 Albumin 3.2 g/dL (3.5-5.2) L 07/19/22 02:34 Globulin 3.3 g/dL (1.3-4.6) 07/19/22 02:34 Blood Type A Negative 07/19/22 02:35 Rho(D) Type Negative 07/19/22 02:35 Antibody Screen Negative 07/19/22 02:35 Screen Negative (Negative) 07/20/22 15:00 Crossmatch See Detail 07/19/22 02:35 Procedures Performed Labor induction Vaginal delivery management of hemorrhage Vitals Last Vital Signs Temp 97.9 F 07/22/22 13:00 Pulse 83 07/22/22 13:00 Resp 16 07/22/22 13:00 BP 127/84 07/22/22 13:00 Pulse Ox 97 07/22/22 13:00 O2 Del Method Room Air 07/22/22 04:41 Discharge Plan Discharge Patient Disposition: Home Condition: Stable Prescriptions: Continued ferrous sulfate 325 mg (65 mg iron) tablet 325 mg PO TID Gummies 400 mcg-35 mg- 25 mg-5 mg tablet,chewable PO Discontinued glyburide 2.5 mg tablet 2.5 mg PO DAILY metformin 500 mg tablet 500 mg PO BID Discharge Orders: Discharge Order (Routine); Ordered 07/22/22 Ordered By: Malcolm Galarza Referrals: Saul Garza MD [Primary Care Provider] - 08/05/22 12:45 pm () Discharge Diet: Usual diet Discharge Activity: Increase activity as tolerated Patient Instructions: Iron Supplements (By mouth), Acetaminophen (By mouth), Depression (DC), Perineal Care (DC), Kegel Exercises for Women (DC), Preeclampsia and Eclampsia After Delivery (GEN), Perineal Tear with Delivery (DC), Vaginal Delivery (DC), Breast Care for the Non- Mother (DC), OB Discharge Report, OB Care at Home, Abnormal Bleeding Discharge Attestations SENIOR OFFICE ASSISTANT Time Spent in Discharge Care*: greater than 30 min Coding Level of Care Code Acute Code for Chg Fwd Diagnoses 38 weeks gestation of Z3A.38 Hypertension I10 Time Spent (min) 60
== END 2022-07-22 13:16 | disposition home or self-care (01) | DRG 807 ==
LOC: OPOB 01:51 → OBGYN 01:51
PROVIDERS: Admitting Provider Obstetrics & Gynecology; PCP Obstetrics & Gynecology; Visit Provider Obstetrics & Gynecology
DX: O16.4 Unspecified maternal hypertension, complicating childbirth (principal); Z37.0 Single live birth; Z3A.38 38 weeks gestation of pregnancy; O24.425 Gestational diabetes mellitus in childbirth, controlled by oral hypoglycemic drugs; O70.1 Second degree perineal laceration during delivery; O72.1 Other immediate postpartum hemorrhage
CPT/HCPCS: 36415; 36416; 36430; 51702; 59025; 59409; 80053; 82962; 84550; 85014; 85018; 85025; 85027; 85460; 86850; 86900; 86920; 90384; 96372; 96374; 96376; 99211; J2795; J3010; J3490; J7040; J7120; J7121; P9016

== ENCOUNTER 2022-07-25 20:33 | Emergency (ER) | payer OTHER, MEDICAID, SELFPAY ==
[2022-07-25 20:53] VITALS: BP 145/95; PULSE 126; RESP 18; TEMP 37.2; O2SAT 97
--- NOTE | 2022-07-25 23:01 | XRR_ITS ---
PROCEDURE INFORMATION: Exam: XR Chest Exam date and time: 07/25/2022 11:17 PM Age: 32 years old Clinical indication: Shortness of breath; Additional info: SOB TECHNIQUE: Imaging protocol: Radiologic exam of the chest. Views: 1 view. COMPARISON: No relevant prior studies available. FINDINGS: Lungs: Suggestion of mild peribronchial cuffing which could represent bronchitis in the appropriate clinical setting. Mild bibasilar opacities may represent superimposition of shadows, atelectasis, inflammation, or infection. Pleural spaces: Unremarkable. No pleural effusion. No pneumothorax. Heart/Mediastinum: The cardiac silhouette is mildly prominent on portable view. The mediastinal silhouette is unremarkable. Bones/joints: Unremarkable. XR/XR chest 1V portable [id number] IMPRESSION: Suggestion of mild peribronchial cuffing which could represent bronchitis in the appropriate clinical setting. Clinical correlation is recommended.
--- NOTE | 2022-07-25 23:14 | ECG_ITS ---
[facility] Test Date: 2022-07-26 Pat Name: Cora Reeder Department: Room: Gender: Female Product Support Analyst: : 1990 Requested By: Sergei Mcneal Order Number: [id number] Almaguer MD: Meet Tucker M.D. Measurements Intervals [place] Rate: 90 P: 54 GA: 148 QRS: 76 QRSD: 78 T: 52 QT: 350 QTc: 429 Interpretive Statements SINUS RHYTHM No previous ECG available for comparison Electronically Signed On 07-26-2022 14:01:31 CDT by Meet Tucker M.D. [email or web address]
--- NOTE | 2022-07-25 23:20 | W.ED.SOB ---
Documented by User: JOHNNIE Serrano 07/26/22 03:08 HPI - SOB/Dyspnea General: Chief Complaint: Fever Stated Complaint: sob,fever post delivery mothers day Time Seen by Provider: 07/25/22 22:51 History of Present Illness: HPI Narrative: Patient is a 32-year-old female comes to the ED with fever and shortness of breath. Patient is 6 days post vaginal delivery. Patient was 38 weeks on July 19 and came to [facility] due to elevated blood pressure. Patient had preeclampsia and vaginal delivery was induced on July 19. She had post delivery hemorrhage and received 1 unit blood transfusion. She was discharged from hospital 3 days ago on July 22. She states that 2 days ago on Thursday she started developing a fever and was treating it with Tylenol. Today she woke up still having a fever but also complaining of chills and shortness of breath. She states that her shortness of breath worsens if she lays down. She endorses a cough when she lays down as well. Denies any upper respiratory symptoms, chest pain, nausea/vomiting, abdominal pain, bladder or bowel symptoms. Denies any heavy vaginal bleeding, but does have some light vaginal bleeding which her OB doctor told her was expected. Denies any lung or heart history. denies breast erythema or tenderness. Associated symptoms: Reports fever(s); Deny abdominal pain, chest pain, nausea, orthopnea, palpitations or vomiting Review of Systems Const: Reports: fever(s), chills and fatigue Eyes: Denies: change in vision or eye discomfort ENMT: Denies: throat pain, odynophagia, nasal discharge or nasal congestion Card: Denies: chest pain, palpitations, edema, swelling of feet/ankles, dyspnea on exertion or orthopnea Resp: Reports: dyspnea; Denies: productive cough or non-productive cough GI: Denies: abdominal pain, nausea, vomiting, diarrhea, constipation or hematochezia : Denies: flank pain, dysuria or hematuria Musc: Denies: neck pain, back pain or extremity swelling Skin/Breast: Denies: rash or new lesions Neuro: Denies: headache(s), numbness in extremities or weakness in extremities [facility] ED PFSH: Medical History 38 weeks gestation of ADD (attention deficit disorder) Dx'd as a young child; managed with concerta, but stopped therapy at age 14. Anemia affecting in second trimester Anxiety and depression Diagnosed at 15 y/o. Has been managed without medication. Diabetes in Hidradenitis suppurativa Hypertension No pertinent past medical history neghx: htn,dm,thyroid,dvt/pe PCP: None Surgical History Hx of ear disorder ear drum reconstruction at age 4 Family History Other Adopted Social History Smoking and tobacco status: never smoked Substance/Drug Use: never Physical Exam Const: COMMON NORMALS: patient oriented x3 and alert GENERAL APPEARANCE: cooperative HENMT: COMMON NORMALS: normocephalic HEAD & SCALP: normocephalic MOUTH: Normal oral and palatal mucosa present THROAT: posterior oropharynx normal and uvula midline Neck/C-Spine: COMMON NORMALS: supple GENERAL: Yes normal visual inspection Resp: COMMON NORMALS: normal respiratory effort, No retractions, No use of accessory muscles and clear to auscultation bilaterally AUSCULTATION: clear to auscultation bilaterally Cardio: COMMON NORMALS: regular rate, regular rhythm, S1 normal heart sound present, S2 normal heart sound present, No gallops present (Cardio), No clicks present (Cardio), No murmurs present (Cardio) and Peripheral pulses 2+ throughout RATE: regular rate RHYTHM: regular rhythm HEART SOUNDS: S1 normal heart sound present and S2 normal heart sound present PERIPHERAL PULSES: Peripheral pulses 2+ throughout GI: COMMON NORMALS: Normal to inspection, nondistended, normoactive bowel sounds present, Soft to palpation, non-tender and no masses PALPATION: Yes Soft to palpation : COMMON NORMALS: Yes no CVA tenderness BLADDER/KIDNEY EXAM: Yes no CVA tenderness Back/Pelvis: COMMON NORMALS: no CVA tenderness Extremity: COMMON NORMALS: normal to inspection Neuro: COMMON NORMALS: patient oriented x3 SENSORIUM/ORIENTATION: Yes alert GAIT: Yes Normal gait present Skin: GENERAL SKIN EXAM: dry skin Course Vital Signs: Vital signs: Vital Signs Temperature 101.7 F H 07/26/22 04:39 Pulse Rate 101 H 07/26/22 05:19 Respiratory Rate 18 07/26/22 05:19 Blood Pressure 149/98 07/26/22 05:19 Pulse Oximetry 97 07/26/22 05:19 Oxygen Delivery Me thod Room Air 07/26/22 01:30 MDM - SOB/Dyspnea Medical Decision Making Patient is a 32-year-old female comes to the ED with fever and shortness of breath. Patient is 6 days post vaginal delivery. Patient was 38 weeks on July 19 and came to [facility] due to elevated blood pressure. Patient had preeclampsia and vaginal delivery was induced on July 19. She had post delivery hemorrhage and received 1 unit blood transfusion. She was discharged from hospital 3 days ago on July 22. She states that 2 days ago on Thursday she started developing a fever and was treating it with Tylenol. Today she woke up still having a fever but also complaining of chills and shortness of breath. She states that her shortness of breath worsens if she lays down. She endorses a cough when she lays down as well. Denies any upper respiratory symptoms, chest pain, nausea/vomiting, abdominal pain, bladder or bowel symptoms. Denies any heavy vaginal bleeding, but does have some light vaginal bleeding which her OB doctor told her was expected. Denies any lung or heart history. denies breast erythema or tenderness. Patient's pulse was 126 at triage and the rest of her vitals were stable. Exam is benign. Patient's hemoglobin is 7.3 which is up slightly from 6.9 back on July 21. D-dimer 2.67. Baseline troponin 25 and 2-hour troponin was 21.79. BNP 909. Chest x-ray shows signs of bronchitis. CTA of chest is pending. 1 unit of RBCs was ordered for patient here in the ED. I talked with Dr. Roberts about patient case and he agreed with plan and will take over patient care pending transfusion and CTA of chest. Lab Data I reviewed the patient's lab results. 07/25/22 23:24 07/25/22 23:24 Labs/Radiology: Radiology Impressions Chest X-Ray 07/25/22 23:01 IMPRESSION: Suggestion of mild peribronchial cuffing which could represent bronchitis in the appropriate clinical setting. Clinical correlation is recommended. Chest CTA 07/26/22 02:00 IMPRESSION: 1. No evidence of acute pulmonary embolism. 2. Bibasilar mild, diffuse infiltrate, left more than right concerning for bronchiolitis, or pneumonia. Clinical correlation is recommended. COMMENTS: Consistent with the [place]'s Incidental Findings Committee white paper (J Am Thien Radiol 2015): In patients under 35 years old with an incidental thyroid nodule equal to or greater than [address], MRI or extrathyroidal US, further evaluation with dedicated thyroid US is recommended for patients with normal life expectancy and without comorbidities. For smaller nodules without suspicious features, no further evaluation or follow up is recommended. Laboratory Results WBC 10.7 10^3/uL (4.0-10.0) H 07/25/22 23:24 RBC 2.66 10^6/uL (4.1-5.3) L 07/25/22 23:24 Hgb 7.3 g/dL (11.5-15.3) L 07/25/22 23:24 Hct 22.7 % (37.0-47.0) L 07/25/22 23:24 MCV 85.3 fl (81-99) 07/25/22 23:24 MCH 27.4 pg (28.0-34.0) L 07/25/22 23:24 MCHC 32.2 g/dL (30.0-36.0) 07/25/22 23: RDW 16.4 % (12.1-15.1) H 07/25/22 23:24 Plt Count 293 10^3/cmm (130-400) 07/25/22 23: MPV 9.2 fL (7.4-10.4) 07/25/22 23: Neut % (Auto) 77.4 % 07/25/22 23:24 Lymph % (Auto) 11.0 % 07/25/22 23:24 [place] % (Auto) 8.6 % 07/25/22 23:24 Eos % (Auto) 0.8 % 07/25/22 23: Baso % (Auto) 0.2 % 07/25/22 23:24 Neut # (Auto) 8.32 10^3/uL (1.8-7.7) H 07/25/22 23:24 Lymph # (Auto) 1.2 10^3/uL (0.8-4.8) 07/25/22 23:24 [place] # (Auto) 0.9 10^3/uL (0.2-0.9) 07/25/22 23:24 Eos # (Auto) 0.1 10^3/uL (0.0-0.8) 07/25/22 23:24 Baso # (Auto) 0.0 10^3/uL (0.0-0.1) 07/25/22 23:24 Nucleated RBC % (auto) 0.4 % 07/25/22 23:24 Nucleated RBCs # 0.0 /100WBC 07/25/22 23:24 D-Dimer 2.67 ug/mIFEU (0-0.59) H 07/25/22 23:24 Sodium 135 mmol/L (136-145) L 07/25/22 23:24 Potassium 3.7 mmol/L (3.5-5.1) 07/25/22 23:24 Chloride 100 mmol/L (98-107) 07/25/22 23:24 Carbon Dioxide 20 mmol/L (22-29) L 07/25/22 23:24 Anion Gap 18.7 (5-19) 07/25/22 23:24 BUN 7 mg/dL (6-20) 07/25/22 23:24 Creatinine 0.4 mg/dL (0.5-0.9) L 07/25/22 23:24 GFR Calculation 185.0 mL/min (90-130) H 07/25/22 23:24 Glucose 100 mg/dL (65-115) 07/25/22 23:24 Calculated Osmolality 278 mOsm/kg (285-295) L 07/25/22 23:24 Lactic Acid 1.1 mmol/L (0.5-2.2) 07/25/22 23:24 Calcium 9.2 mg/dL (8.5-10.5) 07/25/22 23:24 Total Bilirubin 0.3 mg/dL (0.15-1.2) 07/25/22 23:24 AST 14 U/L (0-32) 07/25/22 23:24 ALT 17 U/L (0-33) 07/25/22 23:24 Alkaline Phosphatase 88 U/L (35-105) 07/25/22 23:24 Troponin T Baseline 25 ng/L (0-10) H 07/25/22 23:24 Troponin T 120 Minute 21.79 ng/L (0-10) H 07/26/22 01:16 Delta Troponin T -3.21 ABS# (0-10) L 07/26/22 01:16 NT-Pro-B Natriuret Pep 909 pg/mL (0-125) H 07/26/22 01:16 Total Protein 6.7 g/dL (6.6-8.7) 07/25/22 23:24 Albumin 3.2 g/dL (3.5-5.2) L 07/25/22 23:24 Globulin 3.5 g/dL (1.3-4.6) 07/25/22 23:24 Blood Type A Negative 07/26/22 01:16 Rho(D) Type Negative 07/26/22 01:16 Antibody Screen Negative 07/26/22 01:16 Crossmatch See Detail 07/26/22 01:16 Discharge Plan Discharge Patient Disposition: Home Clinical Impression: Acute blood loss anemia Condition: Stable Prescriptions: New Lasix 20 mg tablet 20 mg PO DAILY Qty: 3 0RF amoxicillin-pot clavulanate 875-125 mg tablet 1 tab PO BID Qty: 14 0RF No Action acetaminophen [Tylenol Extra Strength] 500 mg tablet 1,000 mg PO Q6H PRN (Reason: Pain) (DME) Blood Glucose Test Strip See Rx Instructions .Route Qty: 150 3RF Rx Instructions: As directed (DME) lancets Misc See Rx Instructions .Route Qty: 150 3RF Rx Instructions: As directed ferrous sulfate 325 mg (65 mg iron) tablet 325 mg PO TID (DME) Maternity Belt See Rx Instructions .Route .MEDSUPPLY Qty: 1 0RF Rx Instructions: As directed Gummies 400 mcg-35 mg- 25 mg-5 mg tablet,chewable PO (DME) blood-glucose meter [Blood Glucose Monitoring] Kit See Rx Instructions .Route Qty: 1 0RF Rx Instructions: As directed Discharge Orders: Discharge ED (Routine); Ordered 07/26/22 Ordered By: Felipe Roberts Referrals: Saul Garza MD [Primary Care Provider] - 1-3 days Patient Instructions: Anemia (ED) Activity Restrictions/Additional Instructions: Take the medication prescribed daily for the next 3 days. Monitor for fever twice daily. Antibiotics as directed. Stay hydrated. See your doctor on Thursday for a repeat blood count. Return for worsening shortness of breath, inability to control fever, vomiting liquids or medications, chest pain, sudden increase in vaginal bleeding, any other concerning symptoms. Coding Level of Care Code ED General Dentist/Owner for Chg Fwd Documented by User: Felipe Roberts, 07/26/22 05:35 HPI - SOB/Dyspnea General: Chief Complaint: Fever Stated Complaint: sob,fever post delivery mothers day Time Seen by Provider: 07/25/22 22:51 [facility] ED PFSH: Medical History 38 weeks gestation of ADD (attention deficit disorder) Dx'd as a young child; managed with concerta, but stopped therapy at age 14. Anemia affecting in second trimester Anxiety and depression Diagnosed at 15 y/o. Has been managed without medication. Diabetes in Hidradenitis suppurativa Hypertension No pertinent past medical history neghx: htn,dm,thyroid,dvt/pe PCP: None Surgical History Hx of ear disorder ear drum reconstruction at age 4 Family History Other Adopted Social History Smoking and tobacco status: never smoked Substance/Drug Use: never Course Vital Signs: Vital signs: Vital Signs Temperature 101.7 F H 07/26/22 04:39 Pulse Rate 101 H 07/26/22 05:19 Respiratory Rate 18 07/26/22 05:19 Blood Pressure 149/98 07/26/22 05:19 Pulse Oximetry 97 07/26/22 05:19 Oxygen Delivery Me thod Room Air 07/26/22 01:30 MDM - SOB/Dyspnea Medical Decision Making Patient is a 32-year-old female comes to the ED with fever and shortness of breath. Patient is 6 days post vaginal delivery. Patient was 38 weeks on July 19 and came to [facility] due to elevated blood pressure. Patient had preeclampsia and vaginal delivery was induced on July 19. She had post delivery hemorrhage and received 1 unit blood transfusion. She was discharged from hospital 3 days ago on July 22. She states that 2 days ago on Thursday she started developing a fever and was treating it with Tylenol. Today she woke up still having a fever but also complaining of chills and shortness of breath. She states that her shortness of breath worsens if she lays down. She endorses a cough when she lays down as well. Denies any upper respiratory symptoms, chest pain, nausea/vomiting, abdominal pain, bladder or bowel symptoms. Denies any heavy vaginal bleeding, but does have some light vaginal bleeding which her OB doctor told her was expected. Denies any lung or heart history. denies breast erythema or tenderness. Patient's pulse was 126 at triage and the rest of her vitals were stable. Exam is benign. Patient's hemoglobin is 7.3 which is up slightly from 6.9 back on July 21. D-dimer 2.67. Baseline troponin 25 and 2-hour troponin was 21.79. BNP 909. Chest x-ray shows signs of bronchitis. CTA of chest is pending. 1 unit of RBCs was ordered for patient here in the ED. I talked with Dr. Roberts about patient case and he agreed with plan and will take over patient care pending transfusion and CTA of chest. This patient was originally seen by Mr. Elizabet PA-C.? I agree with his history, evaluation, and treatment. This patient has a concerning presentation given anemia, shortness of breath, potential for bronchiolitis versus fluid on chest x-ray, elevated BNP, and elevated D-dimer. CTA of the chest shows no PE. There is mild diffuse infiltrate in her bibasilar freeman of her lung on chest CT which could represent bronchiolitis or pneumonia in this patient, but is just as likely to be fluid from significant anemia versus less likely cardiomyopathy given normal heart size etc. Her transfusion is nearing its end. She is feeling better. Heart rate is down to around 100. Saturations are stable. She is given IV Lasix 20 mg for diuresis while she is getting blood. We will continue oral Lasix therapy for the next few days, and have her follow-up closely as an outpatient. She knows to return for any worsening shortness of breath. Patient's temperature did rise while getting blood, but the patient has had a fever for the last 4 days. She feels no different. There are no other new symptoms. Saturations are stable. Heart rate is actually coming down. Fever broke with Tylenol. She is feeling improved. We will continue transfusion, hold the patient to watch for symptoms for an hour posttransfusion, and discharge. Lab Data 07/25/22 23:24 07/25/22 23:24 Labs/Radiology: Radiology Impressions Chest X-Ray 07/25/22 23:01 IMPRESSION: Suggestion of mild peribronchial cuffing which could represent bronchitis in the appropriate clinical setting. Clinical correlation is recommended. Chest CTA 07/26/22 02:00 IMPRESSION: 1. No evidence of acute pulmonary embolism. 2. Bibasilar mild, diffuse infiltrate, left more than right concerning for bronchiolitis, or pneumonia. Clinical correlation is recommended. COMMENTS: Consistent with the [place] [employer]'s Incidental Findings Committee white paper (J Am Thien Radiol 2015): In patients under 35 years old with an incidental thyroid nodule equal to or greater than [address], MRI or extrathyroidal US, further evaluation with dedicated thyroid US is recommended for patients with normal life expectancy and without comorbidities. For smaller nodules without suspicious features, no further evaluation or follow up is recommended. Laboratory Results WBC 10.7 10^3/uL (4.0-10.0) H 07/25/22 23:24 RBC 2.66 10^6/uL (4.1-5.3) L 07/25/22 23:24 Hgb 7.3 g/dL (11.5-15.3) L 07/25/22 23:24 Hct 22.7 % (37.0-47.0) L 07/25/22 23:24 MCV 85.3 fl (81-99) 07/25/22 23:24 MCH 27.4 pg (28.0-34.0) L 07/25/22 23:24 MCHC 32.2 g/dL (30.0-36.0) 07/25/22 23:24 RDW 16.4 % (12.1-15.1) H 07/25/22 23:24 Plt Count 293 10^3/cmm (130-400) 07/25/22 23:24 MPV 9.2 fL (7.4-10.4) 07/25/22 23:24 Neut % (Auto) 77.4 % 07/25/22 23:24 Lymph % (Auto) 11.0 % 07/25/22 23:24 [place] % (Auto) 8.6 % 07/25/22 23:24 Eos % (Auto) 0.8 % 07/25/22 23:24 Baso % (Auto) 0.2 % 07/25/22 23:24 Neut # (Auto) 8.32 10^3/uL (1.8-7.7) H 07/25/22 23: Lymph # (Auto) 1.2 10^3/uL (0.8-4.8) 07/25/22 23: [place] # (Auto) 0.9 10^3/uL (0.2-0.9) 07/25/22 23: Eos # (Auto) 0.1 10^3/uL (0.0-0.8) 07/25/22 23: Baso # (Auto) 0.0 10^3/uL (0.0-0.1) 07/25/22 23: Nucleated RBC % (auto) 0.4 % 07/25/22 23: Nucleated RBCs # 0.0 /100WBC 07/25/22 23:24 D-Dimer 2.67 ug/mIFEU (0-0.59) H 07/25/22 23:24 Sodium 135 mmol/L (136-145) L 07/25/22 23:24 Potassium 3.7 mmol/L (3.5-5.1) 07/25/22 23:24 Chloride 100 mmol/L (98-107) 07/25/22 23:24 Carbon Dioxide 20 mmol/L (22-29) L 07/25/22 23:24 Anion Gap 18.7 (5-19) 07/25/22 23:24 BUN 7 mg/dL (6-20) 07/25/22 23:24 Creatinine 0.4 mg/dL (0.5-0.9) L 07/25/22 23: GFR Calculation 185.0 mL/min (90-130) H 07/25/22 23:24 Glucose 100 mg/dL (65-115) 07/25/22 23:24 Calculated Osmolality 278 mOsm/kg (285-295) L 07/25/22 23:24 Lactic Acid 1.1 mmol/L (0.5-2.2) 07/25/22 23:24 Calcium 9.2 mg/dL (8.5-10.5) 07/25/22 23:24 Total Bilirubin 0.3 mg/dL (0.15-1.2) 07/25/22 23:24 AST 14 U/L (0-32) 07/25/22 23:24 ALT 17 U/L (0-33) 07/25/22 23:24 Alkaline Phosphatase 88 U/L (35-105) 07/25/22 23:24 Troponin T Baseline 25 ng/L (0-10) H 07/25/22 23:24 Troponin T 120 Minute 21.79 ng/L (0-10) H 07/26/22 01:16 Delta Troponin T -3.21 ABS# (0-10) L 07/26/22 01:16 NT-Pro-B Natriuret Pep 909 pg/mL (0-125) H 07/26/22 01:16 Total Protein 6.7 g/dL (6.6-8.7) 07/25/22 23:24 Albumin 3.2 g/dL (3.5-5.2) L 07/25/22 23:24 Globulin 3.5 g/dL (1.3-4.6) 07/25/22 23:24 Blood Type A Negative 07/26/22 01:16 Rho(D) Type Negative 07/26/22 01:16 Antibody Screen Negative 07/26/22 01:16 Crossmatch See Detail 07/26/22 01:16 Discharge Plan Discharge Patient Disposition: Home Clinical Impression: Acute blood loss anemia Condition: Stable Prescriptions: New Lasix 20 mg tablet 20 mg PO DAILY Qty: 3 0RF amoxicillin-pot clavulanate 875-125 mg tablet 1 tab PO BID Qty: 14 0RF No Action acetaminophen [Tylenol Extra Strength] 500 mg tablet 1,000 mg PO Q6H PRN (Reason: Pain) (DME) Blood Glucose Test Strip See Rx Instructions .Route Qty: 150 3RF Rx Instructions: As directed (DME) lancets Misc See Rx Instructions .Route Qty: 150 3RF Rx Instructions: As directed ferrous sulfate 325 mg (65 mg iron) tablet 325 mg PO TID (DME) Maternity Belt See Rx Instructions .Route .MEDSUPPLY Qty: 1 0RF Rx Instructions: As directed Gummies 400 mcg-35 mg- 25 mg-5 mg tablet,chewable PO (DME) blood-glucose meter [Blood Glucose Monitoring] Kit See Rx Instructions .Route Qty: 1 0RF Rx Instructions: As directed Discharge Orders: Discharge ED (Routine); Ordered 07/26/22 Ordered By: Felipe Roberts Referrals: Sual Garza MD [Primary Care Provider] - 1-3 days Patient Instructions: Anemia (ED) Activity Restrictions/Additional Instructions: Take the medication prescribed daily for the next 3 days. Monitor for fever twice daily. Antibiotics as directed. Stay hydrated. See your doctor on Thursday for a repeat blood count. Return for worsening shortness of breath, inability to control fever, vomiting liquids or medications, chest pain, sudden increase in vaginal bleeding, any other concerning symptoms. Coding Level of Care Code ED General Dentist/Owner for Reema Betancourt
[2022-07-25 23:36] LABS: Basophils % 0.2 %; Eosinophils # 0.1 10^3/uL (0.0-0.8); Eosinophils % 0.8 %; Hematocrit 22.7 % (37.0-47.0); Hemoglobin 7.3 g/dL (11.5-15.3); Lymphocytes # 1.2 10^3/uL (0.8-4.8); Mean Corpuscular HGB Conc 32.2 g/dL (30.0-36.0); Mean Corpuscular Hemoglobin 27.4 pg (28.0-34.0); Mean Corpuscular Volume 85.3 fl (81-99); Mean Platelet Volume 9.2 fL (7.4-10.4); Monocytes # 0.9 10^3/uL (0.2-0.9); Monocytes % 8.6 %; Neutrophils # 8.32 10^3/uL (1.8-7.7); Neutrophils % 77.4 %; Nucleated Red Blood Cells % 0.4 %; Platelet Count 293 10^3/cmm (130-400); Red Blood Count 2.66 10^6/uL (4.1-5.3); Red Cell Distribution Width 16.4 % (12.1-15.1); White Blood Count 10.7 10^3/uL (4.0-10.0)
[2022-07-25] MEDS: acetaminophen 500 mg Tablet 1000 MG PO (23:41)
[2022-07-25] MEDS: sodium chloride 0.9% 1,000 ML 999 ML IV (23:41)
[2022-07-25 23:59] LABS: Alanine Aminotransferase 17 U/L (0-33); Albumin Level 3.2 g/dL (3.5-5.2); Alkaline Phosphatase 88 U/L (35-105); Anion Gap 18.7 (5-19); Aspartate Amino Transferase 14 U/L (0-32); Blood Urea Nitrogen 7 mg/dL (6-20); Calcium 9.2 mg/dL (8.5-10.5); Carbon Dioxide 20 mmol/L (22-29); Chloride 100 mmol/L (98-107); Globulin 3.5 g/dL (1.3-4.6); Glucose 100 mg/dL (65-115); Osmolality Calculated 278 mOsm/kg (285-295); Potassium 3.7 mmol/L (3.5-5.1); Sodium 135 mmol/L (136-145); Total Bilirubin 0.3 mg/dL (0.15-1.2); Total Protein 6.7 g/dL (6.6-8.7)
[2022-07-26] VITALS (16 sets, daily range): BP systolic 112–164; BP diastolic 76–103; PULSE 84–122; RESP 16–18; TEMP 35.8–38.7; O2SAT 92–99
[2022-07-26 00:01] LABS: Lactic Sepsis W/Reflex 1.1 mmol/L (0.5-2.2)
[2022-07-26 00:11] LABS: Troponin(5th) Baseline 25 ng/L (0-10)
--- NOTE | 2022-07-26 00:19 | PC.NURSE ---
Pt hooked up to continuous bedside cardiac monitoring.
[2022-07-26 01:41] LABS: D Dimer 2.67 ug/mIFEU (0-0.59)
[2022-07-26 01:49] LABS: Troponin 5 2HR 21.79 ng/L (0-10); Troponin 5 2HR Delta -3.21 ABS# (0-10)
[2022-07-26 01:58] LABS: NT Pro B Type Natriuretic Pept 909 pg/mL (0-125)
--- NOTE | 2022-07-26 02:00 | CTR_ITS ---
PROCEDURE INFORMATION: Exam: CTA Chest With Contrast Exam date and time: 07/26/2022 2:18 AM Age: 32 years old Clinical indication: Shortness of breath and other: Post ; Patient HX: 6 days post , shob, elevated d-dimer; Additional info: SOB, elevated d dimer TECHNIQUE: Imaging protocol: Computed tomographic angiography of the chest with contrast. 3D rendering (Not supervised by radiologist): MIP and/or 3D reconstructed images were created by the technologist. Radiation optimization: All CT scans at this facility use at least one of these dose optimization techniques: automated exposure control; mA and/or kV adjustment per patient size (includes targeted exams where dose is matched to clinical indication); or iterative reconstruction. Contrast material: OMNI 350; Contrast volume: 100 ml; Contrast route: INTRAVENOUS (IV); REPORTING DATA: Count of CT and Cardiac NM exams in prior 12 months: This patient has received 0 known CTs and 0 known cardiac nuclear medicine studies in the 12 months prior to the current study. COMPARISON: CR (CHEST, ) 07/25/2022 11:17 PM RADIATION DOSE METRICS: Total DLP (mGy-cm): 498.99 FINDINGS: Pulmonary arteries: Normal. No pulmonary emboli. Aorta: Unremarkable. No aortic aneurysm. No aortic dissection. Lungs: Bibasilar mild, diffuse infiltrate, left more than right concerning for bronchiolitis, or pneumonia. Associated atelectasis can not be excluded. No masses. Pleural spaces: Unremarkable. No pneumothorax. No pleural effusion. Heart: Unremarkable. No cardiomegaly. No pericardial effusion. Lymph nodes: Unremarkable. No enlarged lymph nodes. Bones/joints: Unremarkable. No acute fracture. Soft tissues: Subcentimeter thyroid nodules are nonspecific.. CT/CT angio chest PE protcl [id number] IMPRESSION: 1. No evidence of acute pulmonary embolism. 2. Bibasilar mild, diffuse infiltrate, left more than right concerning for bronchiolitis, or pneumonia. Clinical correlation is recommended. COMMENTS: Consistent with the [employer]'s Incidental Findings Committee white paper (J Am Thien Radiol 2015): In patients under 35 years old with an incidental thyroid nodule equal to or greater than [address], MRI or extrathyroidal US, further evaluation with dedicated thyroid US is recommended for patients with normal life expectancy and without comorbidities. For smaller nodules without suspicious features, no further evaluation or follow up is recommended.
[2022-07-26] MEDS: acetaminophen 325 mg Tablet 650 MG PO (04:41)
[2022-07-26] MEDS: FUROsemide 10 mg/mL SDV 2mL 20 MG IVP (04:48)
--- NOTE | 2022-07-26 05:07 | PC.NURSE ---
Upon taking 0439 vital signs, pt had an axillary temperature of 101.7 F and temporal temperature of 101.2 F. notified. Pt reports that she has had an on and off fever throughout the week. She felt that she had a fever upon arriving, but she said she thought it broke when she got in bed due to her sweating a lot. Pt denies SOB, itching, palpitations. Pt reports feeling more normal now and is currently resting in bed and no longer shivering.
== END 2022-07-26 06:59 | disposition home or self-care (01) ==
PROVIDERS: Physician Assistant; Emergency Provider Emergency Medicine; PCP Obstetrics & Gynecology
DX: O90.81 Anemia of the puerperium (principal); D62 Acute posthemorrhagic anemia
CPT/HCPCS: 36430; 71045; 71275; 80053; 83605; 83880; 84484; 85025; 85378; 86850; 86900; 86920; 93005; 96361; 96374; 99285; J1940; J7030; P9016; Q9967

== ENCOUNTER 2022-08-22 10:05 | Emergency (ER) | payer OTHER, MEDICAID, SELFPAY ==
[2022-08-22 10:08] VITALS: BP 138/106; PULSE 93; RESP 16; TEMP 36.4; O2SAT 99
--- NOTE | 2022-08-22 10:10 | US_ITS ---
WS: [id number] US pelv w/transvag [id number] HISTORY: Vaginal bleeding COMPARISON: None available. Uterus is enlarged and anteverted. Uterus measures 10 cm in length. Loss of the normal junctional zon e. Seen on transabdominal and transvaginal imaging is abnormal soft tissue and echogenicity in the lower uterine segment with marked increased vascularity. Distention of the lower endocervical canal with s oft tissue components measuring 3.9 x 3.3 cm. Consistent with retained products of conception. Marked increased vascularity in the soft tissue component. No free fluid. Neither ovary is well visualized. No adnexal masses. IMPRESSION: 1. Focal retained products of conception along the lower endocervical segment measuring 3.9 x 3.3 cm . 2. Marked increased vascularity in the abnormal soft tissue along the lower endocervical canal. Like ly endometritis.
[2022-08-22 10:24] LABS: Basophils % 0.5 %; Eosinophils # 0.2 10^3/uL (0.0-0.8); Eosinophils % 2.3 %; Hematocrit 31.7 % (37.0-47.0); Hemoglobin 9.9 g/dL (11.5-15.3); Lymphocytes % 23.6 %; Mean Corpuscular HGB Conc 31.2 g/dL (30.0-36.0); Mean Corpuscular Hemoglobin 26.2 pg (28.0-34.0); Mean Corpuscular Volume 83.9 fl (81-99); Mean Platelet Volume 9.4 fL (7.4-10.4); Monocytes # 0.4 10^3/uL (0.2-0.9); Monocytes % 5.1 %; Neutrophils # 5.76 10^3/uL (1.8-7.7); Neutrophils % 68.1 %; Nucleated Red Blood Cells % 0 %; Platelet Count 314 10^3/cmm (130-400); Red Blood Count 3.78 10^6/uL (4.1-5.3); Red Cell Distribution Width 15.5 % (12.1-15.1); White Blood Count 8.4 10^3/uL (4.0-10.0)
--- NOTE | 2022-08-22 10:26 | ED_ITS ---
HPI - Female Genitourinary General: Chief complaint: Vaginal Bleeding Stated complaint: vaginal bleeding Time Seen by Provider: 08/22/22 10:08 Source: patient Mode of arrival: EMS Limitations: no limitations History of Present Illness: Patient presents to the emergency department today for evaluation treatment of heavy vaginal bleeding. Patient is 1 month from full-term delivery of her son. Patient did have complications during her including gestational diabetes and reported preeclampsia. Patient also had hemorrhage requiring 1 unit of packed red blood cells. Patient was seen and evaluated in the emergency department for anemia with a hemoglobin of approximat pilar 7.0. Patient indicated she had 3 to 4 days with no bleeding and last Thursday, began having some light spotting. Patient assumed she was starting back on her normal menstrual cycle. However, she states that Thursday she began having episodes of passing large clots and soaking through large pads. She indicated this lasted most of Thursday but, she only had spotting again the last few days. Today, patient came in as she had return of significant vaginal bleeding including clots. Patient states she has blood dripping into the toilet when she sits. Patient states she is having low abdominal cramping. She has felt nauseated and had an episode of dry heaving but, indicates no p.o. intake today so did not have any food or liquid material when she vomited. Patient states yesterday she stayed well-hydrated with water and sugar-free Gatorade. Patient states she feels fatigued today. She has no difficulty breathing. She does not indicate concerns of headache or visual changes. Review of Systems General: Reports: 10 or more systems reviewed and unremarkable except in HPI and below PFSH ED PFSH: Medical History 38 weeks gestation of ADD (attention deficit disorder) Dx'd as a young child; managed with concerta, but stopped therapy at age 14. Anemia affecting in second trimester Anxiety and depression Diagnosed at 15 y/o. Has been managed without medication. Diabetes in Hidradenitis suppurativa Hypertension No pertinent past medical history neghx: htn,dm,thyroid,dvt/pe PCP: None Surgical History Hx of ear disorder ear drum reconstruction at age 4 Family History Other Adopted Social History Smoking and tobacco status: never smoked Substance/Drug Use: never Physical Exam Const: COMMON NORMALS: no acute distress, average body habitus, patient oriented x3 and alert HENMT: COMMON NORMALS: normocephalic, atraumatic, hearing grossly normal bilaterally and moist oral mucous membranes HEAD & SCALP: normocephalic and atraumatic Eye: COMMON NORMALS: Equal, round and reactive pupils present, EOMs intact bilaterally and conjunctivae normal CONJUNCTIVA: Yes conjunctivae normal PUPIL: Yes Equal, round and reactive pupils present Neck/C-Spine: COMMON NORMALS: no JVD Lymph: LYMPHATIC: no lymphadenopathy noted Resp: COMMON NORMALS: normal respiratory effort, No retractions and No use of accessory muscles Cardio: COMMON NORMALS: no JVD and regular rate RATE: regular rate Extremity: COMMON NORMALS: normal to inspection, full ROM and capillary refill normal Neuro: COMMON NORMALS: patient oriented x3 SENSORIUM/ORIENTATION: Yes alert Psych: COMMON NORMALS: mental status grossly normal, cooperative, normal affect, speech normal and activity/motor behavior normal SPEECH: Yes normal speech Course Vital Signs: Vital signs: Vital Signs Temperature 97.5 F L 08/22/22 10:08 Pulse Rate 84 08/22/22 13:05 Respiratory Rate 14 08/22/22 13:05 Blood Pressure 129/100 08/22/22 13:05 Pulse Oximetry 98 08/22/22 13:05 Oxygen Delivery Me thod Room Air 08/22/22 13:05 MDM - Female Medical Decision Making Patient presents today for complaints of significant vaginal bleeding. Patient has a history of hemorrhage requiring transfusion and, blood loss anemia. Recheck of her labs does show she is holding steady around 10 on her hemoglobin. She does not show signs of dehydration and vital signs have remained stable here. The ultrasound was read by the radiologist as concerning for products of conception and endometritis. I reached out to Dr. Galarza regarding the patient's presentation here in the emergency department as well as her lab and imaging findings. He did not think that the low level of hCG could be related to retained products as she would most likely be septic at this time. He did come down and speak with the patient and evaluated her at bedside. He spoke with me and indicated he was providing the patient some medication to take and she is to call and have [id number] provided her a contact phone number for her to get a hold of him for any complications or concerns. Indicated patient could be safely discharged at this time. Differential Diagnosis Likely abdominal pain, acute appendicitis, constipation and endometriosis (Return of menstrual cycle, retained products) Lab Data 08/22/22 10:16 08/22/22 10:16 Laboratory Results WBC 8.4 10^3/uL (4.0-10.0) 08/22/22 10:16 RBC 3.78 10^6/uL (4.1-5.3) L 08/22/22 10:16 Hgb 9.9 g/dL (11.5-15.3) L 08/22/22 10:16 Hct 31.7 % (37.0-47.0) L 08/22/22 10:16 MCV 83.9 fl (81-99) 08/22/22 10:16 MCH 26.2 pg (28.0-34.0) L 08/22/22 10:16 MCHC 31.2 g/dL (30.0-36.0) 08/22/22 10:16 RDW 15.5 % (12.1-15.1) H 08/22/22 10:16 Plt Count 314 10^3/cmm (130-400) 08/22/22 10:16 MPV 9.4 fL (7.4-10.4) 08/22/22 10:16 Neut % (Auto) 68.1 % 08/22/22 10:16 Lymph % (Auto) 23.6 % 08/22/22 10:16 [place] % (Auto) 5.1 % 08/22/22 10:16 Eos % (Auto) 2.3 % 08/22/22 10:16 Baso % (Auto) 0.5 % 08/22/22 10:16 Neut # (Auto) 5.76 10^3/uL (1.8-7.7) 08/22/22 10:16 Lymph # (Auto) 2.0 10^3/uL (0.8-4.8) 08/22/22 10:16 [place] # (Auto) 0.4 10^3/uL (0.2-0.9) 08/22/22 10:16 Eos # (Auto) 0.2 10^3/uL (0.0-0.8) 08/22/22 10:16 Baso # (Auto) 0.0 10^3/uL (0.0-0.1) 08/22/22 10:16 Nucleated RBC % (auto) 0 % 08/22/22 10:16 Nucleated RBCs # 0.0 /100WBC 08/22/22 10:16 Sodium 138 mmol/L (136-145) 08/22/22 10:16 Potassium 4.0 mmol/L (3.5-5.1) 08/22/22 10:16 Chloride 105 mmol/L (98-107) 08/22/22 10:16 Carbon Dioxide 21 mmol/L (22-29) L 08/22/22 10:16 Anion Gap 16.0 (5-19) 08/22/22 10:16 BUN 8 mg/dL (6-20) 08/22/22 10:16 Creatinine 0.4 mg/dL (0.5-0.9) L 08/22/22 10:16 GFR Calculation 185.0 mL/min (90-130) H 08/22/22 10:16 Glucose 120 mg/dL (65-115) H 08/22/22 10:16 Calculated Osmolality 286 mOsm/kg (285-295) 08/22/22 10:16 Calcium 9.3 mg/dL (8.5-10.5) 08/22/22 10:16 Total Bilirubin 0.2 mg/dL (0.15-1.2) 08/22/22 10:16 AST 18 U/L (0-32) 08/22/22 10:16 ALT 15 U/L (0-33) 08/22/22 10:16 Alkaline Phosphatase 92 U/L (35-105) 08/22/22 10:16 Total Protein 7.3 g/dL (6.6-8.7) 08/22/22 10:16 Albumin 3.8 g/dL (3.5-5.2) 08/22/22 10:16 Globulin 3.5 g/dL (1.3-4.6) 06/16/23 10:16 Ser , Semi-Qnt 10.52 mIU/mL 08/22/22 10:16 Discharge Plan Discharge Patient Disposition: Home Clinical Impression: bleeding Condition: Stable Prescriptions: No Action ferrous sulfate 325 mg (65 mg iron) tablet 325 mg PO TID Gummies 400 mcg-35 mg- 25 mg-5 mg tablet,chewable PO methylergonovine [Methergine] 0.2 mg tablet 0.2 mg PO TID 5 Days Qty: 15 0RF Pirmella 1-35 mg-mcg tablet 1 tab PO DAILY Qty: 28 0RF Discharge Orders: Discharge ED (Routine); Ordered 08/22/22 Ordered By: Sweta Chaidez Referrals: Saul Garza MD [Primary Care Provider] - Discharge Diet: Usual diet Discharge Activity: Limit activity as instructed Activity Restrictions/Additional Instructions: After consulting with Dr. Galarza, he does have some medication that he is providing to you as a prescription to take to help with your symptoms. He indicated he had provided his contact phone number for any continued symptoms or questions and to have follow-up as recommended for your care. Coding Level of Care Code ED Restorative Rehab Aide for Reema Betancourt
[2022-08-22 10:33] VITALS: BP 138/106; PULSE 94; RESP 14; O2SAT 98
[2022-08-22 10:39] LABS: Alanine Aminotransferase 15 U/L (0-33); Albumin Level 3.8 g/dL (3.5-5.2); Alkaline Phosphatase 92 U/L (35-105); Aspartate Amino Transferase 18 U/L (0-32); Blood Urea Nitrogen 8 mg/dL (6-20); Calcium 9.3 mg/dL (8.5-10.5); Carbon Dioxide 21 mmol/L (22-29); Chloride 105 mmol/L (98-107); Globulin 3.5 g/dL (1.3-4.6); Glucose 120 mg/dL (65-115); Osmolality Calculated 286 mOsm/kg (285-295); Sodium 138 mmol/L (136-145); Total Bilirubin 0.2 mg/dL (0.15-1.2); Total Protein 7.3 g/dL (6.6-8.7)
[2022-08-22] MEDS: sodium chloride 0.9% 1,000 ML 999 ML IV (10:52)
--- NOTE | 2022-08-22 11:23 | PC.NURSE ---
This nurse explained the benefits of urinary catheter for obtaining sterile urine sample. Pt states well, the industrial hygiene technician told me I'm bleeding from my vagina, so I don't need a urine sample .
[2022-08-22 11:24] VITALS: BP 149/101; PULSE 75; RESP 16; O2SAT 93
[2022-08-22 11:47] LABS: HCG Quantitative 10.52 mIU/mL
[2022-08-22 13:05] VITALS: BP 129/100; PULSE 84; RESP 14; O2SAT 98
--- NOTE | 2022-08-22 14:37 | P.CONIM_ITS ---
Providers/Reason for Consult Consulting Physican/Specialty*: Pest Control Worker Helper Reason for Consult*: vaginal bleeding Requesting Physcian: ER Attending Physician: Malcolm Galarza MD Primary Care Provider: Saul Garza MD LEISURE STUDIES PROFESSOR Consult HPI History of Present Illness Cora Reeder is a 32 year old female 32 y.o. s/p July 21, 2022 was doing well began to have heavy vaginal bleeding August 17, 2022 then bleeding was less and intermittent this a.m. had very heavy vaginal bleeding with clots no fever, chills, abdominal pain + mild cramps Not Medications/Allergies Home Medications Medication Instructions Recorded Confirmed Last Taken Type PNV 153-FA 400 mcg-om3 35 mg-dha tab PO 12/19/21 08/05/22 07/18/22 History 25 mg-epa 5 mg-fish oil chew tablet ( Gummies) ferrous sulfate 325 mg (65 mg 325 mg PO TID 04/22/22 08/05/22 07/18/22 History iron) tablet Allergies Allergy/AdvReac Type Severity Reaction Status Date / Time black pepper Allergy Severe blisters Verified 08/22/22 10:15 in mouth, vomiting latex Allergy ADR-Itching Verified 08/22/22 10:15 lavender (Lavandula Allergy itchy Verified 08/22/22 10:15 angustifolia) watery eyes, sneezing and migraines lubricants Allergy Intermediate vaginal Uncoded 08/22/22 10:15 swelling and burning PFSH LEISURE STUDIES PROFESSOR PFSH: Medical History 38 weeks gestation of ADD (attention deficit disorder) Dx'd as a young child; managed with concerta, but stopped therapy at age 14. Anemia affecting in second trimester Anxiety and depression Diagnosed at 15 y/o. Has been managed without medication. Diabetes in Hidradenitis suppurativa Hypertension No pertinent past medical history neghx: htn,dm,thyroid,dvt/pe PCP: None Surgical History Hx of ear disorder ear drum reconstruction at age 4 Family History Other Adopted Social History Smoking and tobacco status: never smoked Substance/Drug Use: never Vitals/I&O/Wt Last Vital Signs Temp 97.5 F L 08/22/22 10:08 Pulse 84 08/22/22 13:05 Resp 14 08/22/22 13:05 BP 129/100 08/22/22 13:05 Pulse Ox 98 08/22/22 13:05 O2 Del Method Room Air 08/22/22 13:05 08/21/22 08/22/22 08/22/22 22:59 06:59 14:59 Intake Total 1000 / 1000 Balance 1000 / 1000 Weight last 48 hrs Weight 207 lb Physical Exam Narrative: Weight 207 lbs; 5?2? Comfortable Awake, alert Abd: soft, nontender Perineum: no bleeding at this time Today Hgb 9.9 Serum bhcg 10 Data 08/22/22 10:16 08/22/22 10:16 A&P Assessment and plan (1) bleeding: PPD #30 Heavy vaginal bleeding Doubt retained products of conception Possible late subinvolution of uterus vs. heavy menstrual period Plan treat with Methergine 0.2 mg PO tid x 5 days Pirmella one tablet daily x 30 days Patient instructed to call / return if heavy bleeding, fever, chills, abdominal pain Return to see me on Thursday August 25, 2022 Coding Level of Care Code Acute Code for Chg Fwd Diagnoses bleeding O72.1 Time Spent (min) 40
== END 2022-08-22 14:16 | disposition home or self-care (01) ==
PROVIDERS: Emergency Provider Physician Assistant; PCP Obstetrics & Gynecology
DX: O72.1 Other immediate postpartum hemorrhage (principal); I10 Essential (primary) hypertension
CPT/HCPCS: 76830; 76856; 80053; 84702; 85025; 96360; 96361; 99284; J7030

== ENCOUNTER 2022-09-05 14:58 | Emergency (ER) | payer OTHER, MEDICAID, SELFPAY ==
[2022-09-05 15:30] VITALS: BP 145/100; PULSE 109; RESP 16; TEMP 36.7; O2SAT 98; BMI 38.4
[2022-09-05 16:41] LABS: Basophils % 0.4 %; Eosinophils # 0.1 10^3/uL (0.0-0.8); Eosinophils % 0.9 %; Hematocrit 26.6 % (37.0-47.0); Hemoglobin 7.8 g/dL (11.5-15.3); Lymphocytes # 1.9 10^3/uL (0.8-4.8); Lymphocytes % 19.2 %; Mean Corpuscular HGB Conc 29.3 g/dL (30.0-36.0); Mean Corpuscular Hemoglobin 25.7 pg (28.0-34.0); Mean Corpuscular Volume 87.5 fl (81-99); Mean Platelet Volume 9.1 fL (7.4-10.4); Monocytes # 0.5 10^3/uL (0.2-0.9); Monocytes % 4.5 %; Neutrophils # 7.44 10^3/uL (1.8-7.7); Neutrophils % 74.7 %; Nucleated Red Blood Cells % 0 %; Platelet Count 302 10^3/cmm (130-400); Red Blood Count 3.04 10^6/uL (4.1-5.3); Red Cell Distribution Width 16.7 % (12.1-15.1)
[2022-09-05 17:07] LABS: Alanine Aminotransferase 13 U/L (0-33); Albumin Level 3.4 g/dL (3.5-5.2); Alkaline Phosphatase 83 U/L (35-105); Anion Gap 17.3 (5-19); Aspartate Amino Transferase 12 U/L (0-32); Blood Urea Nitrogen 10 mg/dL (6-20); Calcium 9.2 mg/dL (8.5-10.5); Carbon Dioxide 19 mmol/L (22-29); Chloride 105 mmol/L (98-107); Globulin 3.9 g/dL (1.3-4.6); Glucose 85 mg/dL (65-115); Osmolality Calculated 282 mOsm/kg (285-295); Potassium 4.3 mmol/L (3.5-5.1); Sodium 137 mmol/L (136-145); Total Bilirubin 0.2 mg/dL (0.15-1.2); Total Protein 7.3 g/dL (6.6-8.7)
[2022-09-05] MEDS: acetaminophen 500 mg Tablet 1000 MG PO (18:01)
[2022-09-05 18:04] VITALS: BP 118/74; PULSE 92; O2SAT 100
--- NOTE | 2022-09-05 18:15 | ED_ITS ---
HPI - General Adult General: Chief complaint: Vaginal Bleeding Stated complaint: excessive bleeding after of son Time Seen by Provider: 09/05/22 17:51 History of Present Illness: Patient approximately 7 weeks and noted having vaginal bleeding this morning. Patient says she passed multiple clots and started as bright red blood now it ended up with brownish blood. Patient states the blood flow is now similar to a period. Patient had a follow-up with her EDUCATIONAL TECHNOLOGY COORDINATOR approximately 2 weeks ago everything was normal. But patient did start bleeding a little bit after that but that had stopped. And this is new. Review of Systems General: Reports: 10 or more systems reviewed and unremarkable except in HPI and below PFSH ED PFSH: Medical History 38 weeks gestation of ADD (attention deficit disorder) Dx'd as a young child; managed with concerta, but stopped therapy at age 14. Anemia affecting in second trimester Anxiety and depression Diagnosed at 15 y/o. Has been managed without medication. Diabetes in Hidradenitis suppurativa Hypertension No pertinent past medical history neghx: htn,dm,thyroid,dvt/pe PCP: None Vaginal delivery Surgical History Hx of ear disorder ear drum reconstruction at age 4 Family History Other Adopted Social History Smoking and tobacco status: never smoked Substance/Drug Use: never Physical Exam Const: COMMON NORMALS: no acute distress, average body habitus, patient oriented x3, no limitations, healthy appearing, alert and well nourished HENMT: COMMON NORMALS: normocephalic, atraumatic, hearing grossly normal bilaterally, external ears normal, Normal external nose present and moist oral mucous membranes HEAD & SCALP: normocephalic and atraumatic NOSE: Normal external nose present EXTERNAL EAR: Yes external ears normal Neck/C-Spine: COMMON NORMALS: no JVD Chest: COMMONS NORMALS: normal inspection of the chest and normal palpation of entire chest wall Resp: COMMON NORMALS: normal respiratory effort, No retractions, No use of accessory muscles and clear to auscultation bilaterally AUSCULTATION: clear to auscultation bilaterally Cardio: COMMON NORMALS: no JVD, regular rate, regular rhythm, S1 normal heart sound present, S2 normal heart sound present, No gallops present (Cardio), No clicks present (Cardio) and No murmurs present (Cardio) RATE: regular rate RHYTHM: regular rhythm HEART SOUNDS: S1 normal heart sound present and S2 normal heart sound present GI: COMMON NORMALS: Normal to inspection, nondistended, normoactive bowel sounds present, Soft to palpation, non-tender, No hepatosplenomegaly present and no masses PALPATION: Yes Soft to palpation and Yes No hepatosplenomegaly present Neuro: COMMON NORMALS: patient oriented x3 SENSORIUM/ORIENTATION: Yes alert Course Vital Signs: Vital signs: Vital Signs Temperature 98.0 F 09/05/22 15:30 Pulse Rate 89 09/05/22 18:30 Respiratory Rate 16 09/05/22 15:30 Blood Pressure 139/89 09/05/22 18:30 Pulse Oximetry 98 09/05/22 18:30 Oxygen Delivery Me thod Room Air 09/05/22 15:30 MDM - General Adult Medical Decision Making Patient proximally 6 weeks and having vaginal bleeding. Patient did drop her hemoglobin approximately approximately 2 points in last 2 weeks. Patient's vital signs are stable with blood pressure 138/89 and a heart rate of 89 bpm. Patient is in no acute distress at this moment. Patient will be d ischarged home to follow back up with her EDUCATIONAL TECHNOLOGY COORDINATOR/primary care doctor in approximately 1 week for further evaluation and treatment. Lab Data 09/05/22 16:25 09/05/22 16:25 Laboratory Results WBC 10.0 10^3/uL (4.0-10.0) 09/05/22 16:25 RBC 3.04 10^6/uL (4.1-5.3) L 09/05/22 16:25 Hgb 7.8 g/dL (11.5-15.3) L 09/05/22 16:25 Hct 26.6 % (37.0-47.0) L 09/05/22 16:25 MCV 87.5 fl (81-99) 09/05/22 16:25 MCH 25.7 pg (28.0-34.0) L 09/05/22 16:25 MCHC 29.3 g/dL (30.0-36.0) L 09/05/22 16:25 RDW 16.7 % (12.1-15.1) H 09/05/22 16:25 Plt Count 302 10^3/cmm (130-400) 09/05/22 16:25 MPV 9.1 fL (7.4-10.4) 09/05/22 16:25 Neut % (Auto) 74.7 % 09/05/22 16:25 Lymph % (Auto) 19.2 % 09/05/22 16:25 [place] % (Auto) 4.5 % 09/05/22 16:25 Eos % (Auto) 0.9 % 09/05/22 16:25 Baso % (Auto) 0.4 % 09/05/22 16:25 Neut # (Auto) 7.44 10^3/uL (1.8-7.7) 09/05/22 16:25 Lymph # (Auto) 1.9 10^3/uL (0.8-4.8) 09/05/22 16:25 [place] # (Auto) 0.5 10^3/uL (0.2-0.9) 09/05/22 16:25 Eos # (Auto) 0.1 10^3/uL (0.0-0.8) 09/05/22 16:25 Baso # (Auto) 0.0 10^3/uL (0.0-0.1) 09/05/22 16:25 Nucleated RBC % (auto) 0 % 09/05/22 16:25 Nucleated RBCs # 0.0 /100WBC 09/05/22 16:25 Sodium 137 mmol/L (136-145) 09/05/22 16:25 Potassium 4.3 mmol/L (3.5-5.1) 09/05/22 16:25 Chloride 105 mmol/L (98-107) 09/05/22 16:25 Carbon Dioxide 19 mmol/L (22-29) L 09/05/22 16:25 Anion Gap 17.3 (5-19) 09/05/22 16:25 BUN 10 mg/dL (6-20) 09/05/22 16:25 Creatinine 0.5 mg/dL (0.5-0.9) 06/30/23 16:25 GFR Calculation 143.0 mL/min (90-130) H 09/05/22 16:25 Glucose 85 mg/dL (65-115) 09/05/22 16:25 Calculated Osmolality 282 mOsm/kg (285-295) L 09/05/22 16:25 Calcium 9.2 mg/dL (8.5-10.5) 09/05/22 16:25 Total Bilirubin 0.2 mg/dL (0.15-1.2) 09/05/22 16:25 AST 12 U/L (0-32) 09/05/22 16:25 ALT 13 U/L (0-33) 09/05/22 16:25 Alkaline Phosphatase 83 U/L (35-105) 09/05/22 16:25 Total Protein 7.3 g/dL (6.6-8.7) 09/05/22 16:25 Albumin 3.4 g/dL (3.5-5.2) L 09/05/22 16:25 Globulin 3.9 g/dL (1.3-4.6) 09/05/22 16:25 Discharge Plan Discharge Patient Disposition: Home Clinical Impression: Vaginal bleeding Condition: Stable Prescriptions: No Action ferrous sulfate 325 mg (65 mg iron) tablet 325 mg PO TID Gummies 400 mcg-35 mg- 25 mg-5 mg tablet,chewable PO Pirmella 1-35 mg-mcg tablet 1 tab PO DAILY Qty: 28 0RF Discharge Orders: Discharge ED (Routine); Ordered 09/05/22 Ordered By: Titi Méndez Referrals: Saul Garza MD [Primary Care Provider] - 1 week Patient Instructions: Bleeding (ED) Activity Restrictions/Additional Instructions: Please follow-up with your primary care doctor and/or your EDUCATIONAL TECHNOLOGY COORDINATOR in approximately 1 week. Please have repeat blood values obtained then to recheck your hemoglobin. If you get symptomatically lightheaded dizzy that will not resolve or continues to bleed a copious amount please return to the ER for furt her evaluation and treatment. Coding Level of Care Code ED Molder Bench for Reema Betancourt
[2022-09-05 18:30] VITALS: BP 139/89; PULSE 89; O2SAT 98
[2022-09-05 19:23] VITALS: BP 127/90; PULSE 82; RESP 16; O2SAT 91
== END 2022-09-05 19:25 | disposition home or self-care (01) ==
PROVIDERS: Physician Assistant; Emergency Provider Emergency Medicine; PCP Obstetrics & Gynecology
DX: N93.9 Abnormal uterine and vaginal bleeding, unspecified (principal); I10 Essential (primary) hypertension
CPT/HCPCS: 36415; 80053; 85025; 99283

== ENCOUNTER 2022-09-08 16:47 | Outpatient (CLI) | payer OTHER, MEDICAID, SELFPAY ==
--- NOTE | 2022-09-08 17:15 | USR_ITS ---
PROCEDURE INFORMATION: Exam: US Pelvis, Transvaginal Exam date and time: 09/08/2022 5:26 PM Age: 32 years old Clinical indication: Condition or disease; Other: Retained products; Additional info: N93.9 - abnormal uterine and vaginal bleeding, unspecified TECHNIQUE: Imaging protocol: Real-time transvaginal pelvic ultrasound with image documentation. Transvaginal imaging was used for better evaluation of the endometrium, adnexa, and/or cervix. COMPARISON: US pelv w/transvag [id number] 08/22/2022 10:42 AM FINDINGS: Uterus: Uterus measures 8.9 x 4.2 x 5.3 cm. Endometrium at the fundus measures 7-8 mm. Within the lower uterine segment and endocervical canal, significant increased fullness with heterogeneity though predominant increased echogenic appearance is seen. At the cervix, this measures 4.1 x 2.7 x 3.6 cm. Associated with predominant peripheral flow. Right ovary/adnexa: Right ovary measures 2.3 x 1.7 x 1.9 cm. Flow is seen. PSV of 12 centimeters/second and RI of 0.49. Left ovary/adnexa: Left ovary measures 2.1 x 2.1 x 1.9 cm. Flow is seen. PSV of 10.1 centimeters/second and RI of 0.47. Intraperitoneal space: Trace fluid in the cul-de-sac. US/US transvaginal [id number] IMPRESSION: 1. Findings suggestive of retained products within the lower uterine segment/endocervical canal region, remaining persistent when correlated with prior exam. 2. Ovaries appear unremarkable.
== END 2022-09-08 16:48 | disposition home or self-care (01) ==
LOC: RAD 16:49
PROVIDERS: PCP Obstetrics & Gynecology; Visit Provider Obstetrics & Gynecology
DX: N93.9 Abnormal uterine and vaginal bleeding, unspecified (principal)
CPT/HCPCS: 76830

== ENCOUNTER 2022-09-12 15:00 | Day surgery (SDC) | payer OTHER, MEDICAID, SELFPAY ==
[2022-09-12] VITALS (8 sets, daily range): BP systolic 115–142; BP diastolic 62–86; PULSE 80–92; RESP 16–18; TEMP 36.3–36.6; O2SAT 92–98; BMI 36.6
--- NOTE | 2022-09-12 15:39 | ANES.PREANE2 ---
Pre-Anesthetic Assessment Height/Weight: Height 1.57 m Preop Diagnosis: poatspartum bleeding, retained product of conception Operation Date: 09/12/22 16:30 Proposed Procedures p Dilation And Curettage w/ Suction 22134,O73.1(Not Applicable) - Saul Garza MD Familial anesthetic complications: none Was Beta María taken within 24 hours: N/A Was Clonidine taken within 24 hours: N/A Social No alcohol and No tobacco Exam alert, oriented x 3, clear to auscultation bilaterally and regular rate & rhythm Airway Submandibular: within normal limits Cervical ROM: within normal limits Mallampati: Class II Dentition: full CV/HEM Anemia Metabolic Morbid Obesity Neuropsych Anxiety and Depression Anesthetic Plan ASA status: 3 Anesthesia: General Medications/Allergies Home Medications Medication Instructions Recorded Confirmed Last Taken Type PNV 153-FA 400 mcg-om3 35 mg-dha tab PO 12/19/21 09/12/22 07/18/22 History 25 mg-epa 5 mg-fish oil chew tablet ( Gummies) ferrous sulfate 325 mg (65 mg 325 mg PO TID 04/22/22 09/12/22 09/12/22 History iron) tablet norethindrone 1 mg-ethinyl 1 tab PO DAILY #28 tabs 08/22/22 09/12/22 09/11/22 Rx estradiol 35 mcg tablet (Pirmella) Allergies Allergy/AdvReac Type Severity Reaction Status Date / Time black pepper Allergy Severe blisters Verified 09/12/22 10:29 in mouth, vomiting latex Allergy ADR-Itching Verified 09/12/22 10:29 lavender (Lavandula Allergy itchy Verified 09/12/22 10:29 angustifolia) watery eyes, sneezing and migraines lubricants Allergy Intermediate vaginal Uncoded 09/12/22 10:29 swelling and burning PFSH Anesthesia Medical History 38 weeks gestation of ADD (attention deficit disorder) Dx'd as a young child; managed with concerta, but stopped therapy at age 14. Anemia affecting in second trimester Anxiety and depression Diagnosed at 15 y/o. Has been managed without medication. Diabetes in Hidradenitis suppurativa Hypertension No pertinent past medical history neghx: htn,dm,thyroid,dvt/pe PCP: None Vaginal delivery Surgical History Hx of ear disorder ear drum reconstruction at age 4 Family History Other Adopted Social History Smoking and tobacco status: never smoked Substance/Drug Use: never Data Anesthesia Cardiac Studies: No Data to Display
[2022-09-12] MEDS: sodium chloride 0.9% 1,000 ML 30 ML IV (15:57)
[2022-09-12] MEDS: scopolamine 1.5 Patch 1 PATCH TRANSDERMA (15:57)
[2022-09-12 16:05] LABS: Glucose Point of Care 79 mg/dL (70-110)
[2022-09-12 16:06] LABS: Hematocrit 30.2 % (37.0-47.0); Hemoglobin 8.8 g/dL (11.5-15.3)
[2022-09-12 16:11] LABS: OR HCG Qualitative Urine Negative (Negative)
[2022-09-12 16:18] LABS: Alanine Aminotransferase 12 U/L (0-33); Albumin Level 3.6 g/dL (3.5-5.2); Alkaline Phosphatase 87 U/L (35-105); Aspartate Amino Transferase 17 U/L (0-32); Blood Urea Nitrogen 9 mg/dL (6-20); Calcium 9.2 mg/dL (8.5-10.5); Carbon Dioxide 19 mmol/L (22-29); Chloride 105 mmol/L (98-107); Globulin 4.3 g/dL (1.3-4.6); Glucose 74 mg/dL (65-115); Osmolality Calculated 283 mOsm/kg (285-295); Sodium 138 mmol/L (136-145); Total Bilirubin 0.2 mg/dL (0.15-1.2); Total Protein 7.9 g/dL (6.6-8.7)
[2022-09-12 16:37] LABS: Add Urine Microscopic? YES; Bilirubin Urine Neg (Negative); Blood Urine 3+ (Negative); Glucose Urine UA Norm (Normal); Ketones Urine Negative (Negative); Leukocyte Esterase Urine 2+ (Negative); Nitrate Urine Negative (Negative); Protein Urine Trace (Negative); Urine Appearance SL Hazy (CLEAR); Urine Color Yellow (Yellow); Urobilinogen Urine Norm (Negative); pH Urine 5 (5-7)
[2022-09-12 16:38] LABS: Add Urine Culture? Yes; Bacteria Urine TRACE /hpf; Mucus Urine 2+ /hpf; RBC Urine 15-25 /hpf (0-2); Squamous Epithelial Cell Urine 0-4 /hpf (0-5); WBC Urine 40-55 /hpf (0-5)
--- NOTE | 2022-09-12 17:01 | W.PM.OPSUD ---
Surgery/Procedure H&P Update DATE OF PROCEDURE: September 12, 2022 DATE H&P PERFORMED: 09/12/22 H&P UPDATE INFORMATION: I have reviewed H&P completed within last 30 days, I have examined patient prior to procedure and No changes to prior documentation PREOP DIAGNOSIS: poatspartum bleeding, retained product of conception PLANNED PROCEDURE: Operation Date: 09/12/22 16:30 Proposed Procedures p Dilation And Curettage w/ Suction 21651,O73.1(Not Applicable) - Saul Garza MD
[2022-09-12] MEDS: ceFAZolin 2,000 MG in sodium chloride 0.9% (plus) 50 ML 100 MG IV (17:05)
[2022-09-12] MEDS: lidocaine-epi 2% 20 mL INJ 10 ML INJECTION (17:35)
--- NOTE | 2022-09-12 17:35 | PM.OP ---
Operative Report Date of procedure: September 12, 2022 Pre-op diagnosis: Preop Diagnosis poatspartum bleeding, retained product of conception Post-op diagnosis: Same as above Procedure done: Suction dilation and curettage Specimens removed/disposition: Retained placental/product conception tissue Surgeon: Saul Garza MD Estimated blood loss (mL): 5 IV fluids (mL): 500 Brief History: Mrs. Sosa 32-year-old female is status post spontaneous vaginal delivery with delay hemorrhage, ultrasound showing retained placental/products of conception. Procedure: After informed consent, the patient was taken to the Operating Room where general anesthesia was administered. The patient was examined under anesthesia and found to have a normal uterus with normal adnexa. She was placed in the dorsal lithotomy position and prepped and draped in sterile fashion. A sterile weighted speculum was placed in the patient?s vagina. A single-tooth tenaculum was then applied to the cervix. The uterus was then gently sounded to 8 cm and a suction curette was advanced gently to the uterine fundus and retained product of conception emptied. A sharp curettage was then performed until a gritty texture was noted. There was minimal bleeding noted and the tenaculum was removed with good hemostasis noted. The patient tolerated the procedure well. The patient was taken to the recovery area in stable condition.
--- NOTE | 2022-09-12 19:20 | ANE.PACU2 ---
Inpatient post-anesthesia follow up: Airway intact: Yes Vital signs: Temperature 97.4 F Pulse Rate 82 Respiratory Rate 16 Blood Pressure 126/72 Pulse Oximetry 98 Oxygen Delivery Me thod Room Air Oxygen Flow Rate 3 Fraction of Inspir ed Oxygen Hydration adequate: Yes Nausea and vomiting: No Pain level: 3 Mental status: Baseline
== END 2022-09-12 18:40 | disposition home or self-care (01) ==
PROVIDERS: Anesthesiology; PCP Obstetrics & Gynecology; Visit Provider Obstetrics & Gynecology
PROC: (CPT 59160; principal; 2022-09-12 16:30)
DX: O72.2 Delayed and secondary postpartum hemorrhage (principal)
CPT/HCPCS: 59160; 36415; 36416; 80053; 81001; 81025; 82947; 82962; 84703; 85014; 85018; 85025; 86850; 86900; 87086; 88305; J0690; J1100; J1885; J2250; J2405; J2704; J3010; J7030

== ENCOUNTER → 2024-08-31 16:36 | Outpatient (BNVA) | payer OTHER, MEDICAID, SELFPAY | PROVIDERS: PCP Obstetrics & Gynecology; Visit Provider Nurse Practitioner Women's Health | DX: Z01.419 Encounter for gynecological examination (general) (routine) without abnormal findings (principal) | CPT/HCPCS: 87624 ==

== ENCOUNTER → 2024-09-01 08:57 | Outpatient (BNVA) | payer OTHER, MEDICAID, SELFPAY | PROVIDERS: PCP Obstetrics & Gynecology; Visit Provider Emergency Medicine | DX: I10 Essential (primary) hypertension (principal) | CPT/HCPCS: 80053; 85025 ==

== ENCOUNTER → 2024-09-13 09:30 | Outpatient (BNVA) | payer OTHER, MEDICAID, SELFPAY | DX: I10 Essential (primary) hypertension (principal); O24.319 Unspecified pre-existing diabetes mellitus in pregnancy, unspecified trimester | CPT/HCPCS: 80053; 80061; 83036 ==

== ENCOUNTER → 2024-12-07 14:26 | Outpatient (BNVA) | payer OTHER, MEDICAID, SELFPAY | DX: E11.9 Type 2 diabetes mellitus without complications (principal) | CPT/HCPCS: 83036; 85025 ==